=== PATIENT | female | born 1935 | race Caucasian/White ===

== ENCOUNTER → 2016-12-03 | Outpatient (CLI) | payer OTHER ==
[~2016-12-03] MED LIST: ASCO500T16 PO; ASPCH81 PO; CALCTAB7 PO; CLX20 PO; FLV400 PO; FURO20TA PO; GREE315C PO; LEVO50TA PO; MCRK20 PO; MULTTAB58 PO; OMEG10007 PO; POLY335025 PO; RANI300T PO; VITA100C2 PO
--- NOTE | 2016-12-03 13:31 | MAMMOGRAPHY REPORT ---
BILATERAL DIGITAL SCREENING MAMMOGRAM WITH CAD: 12/03/2016 CLINICAL HISTORY: Routine screening. Patient has no complaints. TECHNIQUE: Current study was also evaluated with a Computer Aided Detection (CAD) system. Bilatera l CC and MLO and left X CCL views were obtained. COMPARISON: Comparison is made to exams dated: 12/01/2015 mammogram, 12/11/2014 mammogram, 12/11/2014 s tereotactic biopsy, 12/06/2014 mammogram, 11/27/2014 mammogram, and 11/26/2013 mammogram - [facility]. BREAST COMPOSITION: There are scattered areas of fibroglandular density in both breasts. FINDINGS: No suspicious masses, calcifications, or areas of architectural distortion are noted in e ither breast. There has been no significant interval change compared to prior exams. A biopsy marke r clip is again noted in the left upper outer quadrant. Bilateral benign-appearing calcifications a re not significantly changed. Bilateral asymmetries are stable. IMPRESSION: ACR BI-RADS CATEGORY 2: BENIGN There is no mammographic evidence of malignancy. A 1 year screening mammogram is recommended. The p atient will receive written notification of the results. Approximately 10% of breast cancers are not detected with mammography. A negative mammographic repor t should not delay biopsy if a clinically suggestive mass is present. Lizzette Hook M.D. /:12/03/2016 09:31:21 Service Or Work Dispatcher: Yuridia Ferrell, [facility] letter sent: Normal 1/2 BI-RADS Code: ACR BI-RADS Category 2: Benign
== END | disposition home or self-care (01) ==
LOC: C.MAMM 08:45
PROVIDERS: ATTEND Family Medicine
DX: Z12.31 Encounter for screening mammogram for malignant neoplasm of breast (principal)

== ENCOUNTER → 2017-12-06 | Outpatient (CLI) | payer OTHER ==
--- NOTE | 2017-12-07 15:34 | MAMMOGRAPHY REPORT ---
BILATERAL DIGITAL SCREENING MAMMOGRAM TOMOSYNTHESIS WITH CAD: 12/06/2017 CLINICAL HISTORY: Routine screening. Patient has no complaints. TECHNIQUE: Breast tomosynthesis in addition to standard 2D mammography was performed. Current study was also evaluated with a Computer Aided Detection (CAD) system. COMPARISON: Comparison is made to exams dated: 12/03/2016 mammogram, 12/01/2015 mammogram, 12/11/2014 ma mmogram, 11/27/2014 mammogram, 11/26/2013 mammogram, and 11/23/2012 mammogram - [facility]. BREAST COMPOSITION: There are scattered areas of fibroglandular density in both breasts. FINDINGS: There is stable asymmetry in the lateral right breast and a stable metallic biopsy marker c lip in the upper outer left breast. Mild vascular calcification. No suspicious mass, architectural d istortion or cluster of microcalcifications is seen. IMPRESSION: ACR BI-RADS CATEGORY 1: NEGATIVE There is no mammographic evidence of malignancy. A 1 year screening mammogram is recommended. The pa tient will receive written notification of the results. Approximately 10% of breast cancers are not detected with mammography. A negative mammographic report should not delay biopsy if a clinically suggestive mass is present. Liudmila Kidd M.D. ay/:12/06/2017 16:41:55 Enterprise Integration Architect: Yuridia [facility])([facility]), [facility] letter sent: Normal 1/2 BI-RADS Code: ACR BI-RADS Category 1: Negative
== END | disposition home or self-care (01) ==
LOC: C.MAMM 08:35
PROVIDERS: ATTEND Family Medicine
DX: Z12.31 Encounter for screening mammogram for malignant neoplasm of breast (principal)

== ENCOUNTER 2021-12-11 00:48 | Inpatient (IN) ==
[2021-12-11] MEDS ORDERED: FAMOTIDINE 20MG IV PUSH 20 MG/5 ML SYR IV STA (01:02)
[2021-12-11] MEDS ORDERED: ONDANSETRON INJ 2 MG/ML 2 ML VIAL IV STA ×2 (01:02→03:42)
[2021-12-11] MEDS ORDERED: ACETAMINOPHEN 1,000 MG/100 ML VIAL IV STA (01:02)
[2021-12-11] MEDS: SODIUM CHLORIDE 0.9% 1000ML 1,000 ML IV SCH ×2 (01:10→06:23)
--- NOTE | 2021-12-11 01:20 | Emergency Department Note ---
History of Present Illness General Chief complaint: Vomiting Stated complaint: Vomiting Time Seen by Provider: 12/11/21 00:51 Source: patient Mode of arrival: EMS Limitations: no limitations History of Present Illness Provider complaint: vomiting, increased hernia Associated symptoms: + loss of appetite, + malaise and + nausea/vomiting; no chest pain, no fever/chills, no shortness of breath or no syncope Treatments prior to arrival: none This is an 86-year-old female presents emergency department complaining of nausea and vomiting. Patient states she does have history of frequent nausea, dry heaves, and vomiting ever since she had a repair of a hiatal hernia many years ago. Patient states she began feeling ill 2 evenings ago, however felt better yesterday during the day, then symptoms returned in the evening. Patient denies any recent change in medications or change in diet. She denies any known sick contact. She denies any recent change in bowel or bladder function. Patient denies any blood in her emesis although states it has been green. Pt seen during a time of high acuity and national emergency pandemic while wearing PPE. Home Medications Medication Instructions Recorded Confirmed Type calcium carbonate 600 mg-vitamin 1 tab PO QAM 07/23/20 12/11/21 History D3 5 mcg (200 unit) tablet cholecalciferol (vitamin D3) 25 25 mcg PO QAM 07/23/20 12/11/21 History mcg (1,000 unit) tablet (Vitamin D3) cranberry 500 mg capsule 500 mg PO QAM 07/23/20 12/11/21 History levothyroxine 50 mcg tablet 50 mcg PO QAM 07/23/20 12/11/21 History multivitamin 1 tab PO DAILY 07/23/20 12/11/21 History aspirin 81 mg tablet,delayed 81 mg PO QAM 12/11/21 12/11/21 History release omega-3 fatty acids 1,000 mg 1,000 mg PO DAILY 12/11/21 12/11/21 History capsule vitamin E 400 unit capsule 400 unit PO DAILY 12/11/21 12/11/21 History Allergies Allergy/AdvReac Type Severity Reaction Status Date / Time alendronate sodium Allergy Intermediate body aches Verified 12/11/21 01:19 pantoprazole AdvReac Intermediate Diarrhea. Verified 12/11/21 01:19 risedronate sodium AdvReac Intermediate STOMACH Verified 12/11/21 01:19 PROBLEMS Past Med/Surg History Medical History Hiatal hernia History of anxiety Hypothyroidism Osteoarthritis Ulcerative colitis Surgical History H/O bilateral salpingo-oophorectomy History of colonoscopy History of esophagogastroduodenoscopy (EGD) History of herniorrhaphy TOTAL 8 HERNIA REPAIRS History of left cataract surgery History of partial hysterectomy History of tonsillectomy History of tooth extraction History of total knee replacement RT Family History Father Family hx of colon cancer Sister Family hx of colon cancer Other No family history of adverse response to anesthesia Social History Smoking Status: Never smoker Second Hand Exposure: No; Do You Dip or Chew Tobacco: No; Hx Alcohol Use: No Hx Substance Use: No Preferred Language: Korean Communication Ability: Effective Tiger Machine Operator Required: No Beliefs That Will Affect Care: None Current Living Situation: Alone Other Information That Helps Us Care for You: No Feels Safe at Home: Yes Safety Concerns: Feels Safe At This Time Assistive Devices: Cane, Glasses and Walker Review of Systems A total of 10 systems reviewed and were otherwise negative All systems reviewed & are unremarkable except as noted in HPI & below Physical Exam Vital Signs Vital Signs - 24 hr 12/11/21 00:51 12/11/21 01:46 Temperature 36.9 C Temperature Source Oral Pulse Rate 103 H Pulse Rate [Apical] 86 Respiratory Rate 20 16 Respiratory Effort / Characteristics Non-Labored Spontaneous Non-Labored Spontaneous Respiratory Depth Normal Normal Blood Pressure 103/78 Blood Pressure [Right Arm] 145/86 H Blood Pressure Mean 86 Blood Pressure Mean [Right Arm] 105 Pulse Oximetry 99 94 Oxygen Delivery Method Room Air Room Air Sepsis Recent Fever Within 48 Hours No Sepsis New/Unexplained Change in Mental Status No Sepsis Action Taken by Nursing No Action Required GENERAL: alert, ill appearing, well nourished, mild distress, non-toxic, holding emesis bag with bilious emesis present EYE EXAM: normal conjunctiva, PERRL and EOM's grossly intact OROPHARYNX: no exudate, no erythema, lips, buccal mucosa, and tongue normal and mucous membranes are moist NECK: supple, no nuchal rigidity, no adenopathy, non-tender LUNGS: Clear to auscultation. Normal chest wall mechanics, no w/r/r HEART: no murmurs, S1 normal and S2 normal ABDOMEN: abdomen soft, non-tender, normo-active bowel sounds, no masses, no rebound or guarding. Pain with palpation over left inguinal mass which patient states is her hernia, she states typically can reduce this herself but it feels more painful this evening due to vomiting BACK: Back is symmetrical on inspection and there is no deformity, no midline tenderness, no CVA tenderness. SKIN: no rashes and no bruising UPPER EXTREMITIES: upper extremities are grossly normal. FROM, nml pulses b/l. LOWER EXTREMITIES: No pitting edema. FROM, nml pulses b/l. NEURO EXAM: Normal sensorium, cranial nerves II-XII grossly intact, normal speech, no gross weakness of arms, no gross weakness of legs. Gross sensation intact. Course Administered Medications Acetaminophen (Acetaminophen 500 Mg Tab) 1,000 mg PO Q6H PRN PRN Reason: Pain Stop: 01/10/22 14:11 Last Admin: 12/12/21 15:39 Dose: 1,000 mg Documented by: [id number] Admin: 12/12/21 09:04 Dose: 1,000 mg Documented by: [id number] Heparin Sodium (Porcine) (Heparin Sod 5,000 Unit/0.5 Ml Vial) 5,000 units SQ Q12 ANA Stop: 01/11/22 20:59 Last Admin: 12/12/21 20:22 Dose: 5,000 units Documented by: [id number] Lactated Ringer's (Lr) 1,000 mls @ 100 mls/hr IV .Q10H ANA Stop: 01/10/22 14:11 Last Admin: 12/12/21 13:41 Dose: 100 mls/hr Documented by: [id number] Infusion: 12/12/21 13:41 Dose: 100 mls/hr Documented by: [id number] Admin: 12/12/21 03:47 Dose: 100 mls/hr Documented by: [id number] Infusion: 12/12/21 03:47 Dose: 100 mls/hr Documented by: [id number] Admin: 12/11/21 17:50 Dose: 100 mls/hr Documented by: [id number] Discontinued Medications Bupivacaine HCl (Bupivacaine 0.5 % 5 Mg/1 Ml Mpf 30ml Vial) Confirm Administered Dose 30 ml .ROUTE .STK-MED ONE Stop: 12/11/21 12:12 Last Admin: 12/11/21 13:10 Dose: 11 ml Documented by: [id number] Droperidol (Droperidol 5 Mg/2 Ml Vial) 0.625 mg IV ONE STA Stop: 12/11/21 13:26 Last Admin: 12/11/21 13:32 Dose: 0.625 mg Documented by: [id number] Epinephrine HCl (Epinephrine Inj 1 Mg/Ml Amp) Confirm Administered Dose 1 mg .ROUTE .STK-MED ONE Stop: 12/11/21 12:13 Last Admin: 12/11/21 13:11 Dose: 0.15 mg Documented by: [id number] Sodium Chloride (Nss 1000ml) 1,000 mls @ 200 mls/hr IV .Q5H ANA Stop: 01/10/22 01:14 Last Infusion: 12/11/21 17:46 Dose: 0 mls/hr Documented by: [id number] Admin: 12/11/21 06:23 Dose: 200 mls/hr Documented by: [id number] Infusion: 12/11/21 06:20 Dose: 0 mls/hr Documented by: [id number] Admin: 12/11/21 01:10 Dose: 200 mls/hr Documented by: [id number] Acetaminophen (Ofirmev) 1,000 mg in 100 mls @ 400 mls/hr IV NOW STA Stop: 12/11/21 01:16 Last Infusion: 12/11/21 01:33 Dose: 0 mls/hr Documented by: [id number] Admin: 12/11/21 01:10 Dose: 400 mls/hr Documented by: [id number] Famotidine (Pepcid 20mg Iv Push) 20 mg in 5 mls @ 2.5 mls/min IV NOW STA Stop: 12/11/21 01:03 Last Admin: 12/11/21 01:09 Dose: 2.5 mls/min Documented by: [id number] Dextrose/Sodium Chloride (D5w And 1/2nss) 1,000 mls @ 125 mls/hr IV .Q8H ANA Stop: 01/10/22 08:10 Last Infusion: 12/11/21 17:45 Dose: 0 mls/hr Documented by: [id number] Admin: 12/11/21 09:21 Dose: 125 mls/hr Documented by: [id number] Cefazolin Sodium (Ancef 2000mg) 2,000 mg in 15 mls @ 3.75 mls/min IV PREOP ONE Stop: 12/11/21 11:09 Last Admin: 12/11/21 12:18 Dose: 3.75 mls/min Documented by: [id number] Ioversol (Optiray 320 100ml) 100 ml IV ONCE ONE Stop: 12/11/21 02:49 Last Admin: 12/11/21 02:49 Dose: 93 ml Documented by: [id number] Menthol (Cough Drop (Sugar Free) Jana 24 Jana/1 Box) Confirm Administered Dose 24 jana BUCCAL .STK-MED ONE Stop: 12/12/21 15:40 Last Admin: 12/12/21 15:39 Dose: 24 jana Documented by: [id number] Ondansetron HCl (Ondansetron Inj 2 Mg/Ml 2 Ml Vial) 4 mg IV NOW STA Stop: 12/11/21 01:03 Last Admin: 12/11/21 01:09 Dose: 4 mg Documented by: [id number] Ondansetron HCl (Ondansetron Inj 2 Mg/Ml 2 Ml Vial) 4 mg IV NOW STA Stop: 12/11/21 03:43 Last Admin: 12/11/21 04:24 Dose: 4 mg Documented by: [id number] Medical Decision Making Differential Diagnosis Differential: Gastroenteritis, Food Borne, Esophageal Perforation, , Electrolyte Abnormality, Dehydration, Intraabdominal Infection, UTI/Pyelonephri tis, Bowel Obstruction, Biliary Pathology, amongst other pathology entertained. Medical Records Attestation: I reviewed the patient's medical records. Home Medications Current Medication List: was personally reviewed by me Laboratory Data Attestation: I reviewed the patient's lab results. Result diagrams: 12/12/21 05:19 12/12/21 05:19 Lab Results 12/11/21 12/11/21 12/11/21 Range/Units 00:59 00:59 01:34 WBC 13.12 H (4.8-10.8) K/uL RBC 5.60 H (4.2-5.4) M/uL Hgb 15.8 (12.0-16.0) g/dL Hct 47.4 H (37-47) % MCV 84.6 (80-100) fL MCH 28.2 (25-34) pg MCHC 33.3 (32-36) g/dL RDW Std Deviation 43.1 (36.4-46.3) fL RDW Coeff of Aneglic 14.0 (11.5-14.5) % Plt Count 442 H (130-400) K/uL MPV 10.1 (7.4-10.4) fL Immature Gran % (Auto) 0.2 % Neut % (Auto) 78.5 % Lymph % (Auto) 15.3 % Stone % (Auto) 5.6 % Eos % (Auto) 0.2 % Baso % (Auto) 0.2 % Neut # (Auto) 10.29 H (1.4-6.5) K/uL Lymph # (Auto) 2.01 (1.2-3.4) K/uL Stone # (Auto) 0.74 H (0.11-0.59) K/uL Eos # (Auto) 0.02 (0-0.5) K/uL Baso # (Auto) 0.03 (0-0.2) K/uL Immature Gran # (Auto) 0.03 H (0.00-0.02) K/uL Sodium 134 L (136-145) mmol/L Potassium 4.3 (3.5-5.1) mmol/L Chloride 91 L (98-107) mmol/L Carbon Dioxide 25 (21-32) mmol/L Anion Gap 18 H (3-11) BUN 15 (6-23) mg/dl Creatinine 1.08 (0.6-1.2) mg/dl Est Cr Clr Drug Dosing 26.9 ml/min Est GFR ( Amer) 53.8 ml/min Est GFR (Non-Af Amer) 46.4 ml/min BUN/Creatinine Ratio 13.9 (10-20) Glucose 184 H (70-99(Fasting)) mg/dl Lactate 2.6 H* (0.4-2.0) mmol/L Calcium 10.3 H (8.5-10.1) mg/dl Magnesium 1.7 (1.7-2.4) mg/dl Total Bilirubin 1.1 H (0.2-1.0) mg/dl AST 21 (13-39) U/L ALT 16 (7-52) U/L Alkaline Phosphatase 85 (34-104) U/L Troponin I < 0.03 (0-0.04) ng/ml Total Protein 7.4 (6.0-8.3) gm/dl Albumin 4.7 (3.4-5.0) gm/dl Globulin 2.7 (2.5-4.0) gm/dl Albumin/Globulin Ratio 1.7 (0.9-2) Lipase 246 H (11-82) U/L SARS-CoV-2, RNA, NAAT (NEGATIVE) 12/11/21 12/11/21 Range/Units 03:29 05:40 WBC (4.8-10.8) K/uL RBC (4.2-5.4) M/uL Hgb (12.0-16.0) g/dL Hct (37-47) % MCV (80-100) fL MCH (25-34) pg MCHC (32-36) g/dL RDW Std Deviation (36.4-46.3) fL RDW Coeff of Angelic (11.5-14.5) % Plt Count (130-400) K/uL MPV (7.4-10.4) fL Immature Gran % (Auto) % Neut % (Auto) % Lymph % (Auto) % Stone % (Auto) % Eos % (Auto) % Baso % (Auto) % Neut # (Auto) (1.4-6.5) K/uL Lymph # (Auto) (1.2-3.4) K/uL Stone # (Auto) (0.11-0.59) K/uL Eos # (Auto) (0-0.5) K/uL Baso # (Auto) (0-0.2) K/uL Immature Gran # (Auto) (0.00-0.02) K/uL Sodium (136-145) mmol/L Potassium (3.5-5.1) mmol/L Chloride (98-107) mmol/L Carbon Dioxide (21-32) mmol/L Anion Gap (3-11) BUN (6-23) mg/dl Creatinine (0.6-1.2) mg/dl Est Cr Clr Drug Dosing ml/min Est GFR ( Amer) ml/min Est GFR (Non-Af Amer) ml/min BUN/Creatinine Ratio (10-20) Glucose (70-99(Fasting)) mg/dl Lactate 1.1 (0.4-2.0) mmol/L Calcium (8.5-10.1) mg/dl Magnesium (1.7-2.4) mg/dl Total Bilirubin (0.2-1.0) mg/dl AST (13-39) U/L ALT (7-52) U/L Alkaline Phosphatase (34-104) U/L Troponin I (0-0.04) ng/ml Total Protein (6.0-8.3) gm/dl Albumin (3.4-5.0) gm/dl Globulin (2.5-4.0) gm/dl Albumin/Globulin Ratio (0.9-2) Lipase (11-82) U/L SARS-CoV-2, RNA, NAAT NEGATIVE (NEGATIVE) Imaging Data Radiologist's Impression: CT abdomen and pelvis with contrast: High-grade small bowel obstruction with a transition point involving the bowel herniation at the left inguinal canal. No pneumatosis or pneumoperitoneum. Pneumobilia, similar company examination 09/22/2012. Cholecystectomy. Liver, pancreas, spleen, adrenal glands and kidneys demonstrate no significant abnormality or interval change. The bladder is predominantly decompressed. Significant degenerative changes of the thoracolumbar spine. No acute osseous abnormality. Radiologist: Pardeep Gee MD MDM Narrative This is an 86 yo female who presents c/o recurrent vomiting. Patient states her known left inguinal hernia is more painful since this began. Patient ill appearing but hemodynamically stable on presentation. Labs drawn and sent, pt started on IVF, nausea and pain medications. Patient with leukocytosis and elevated lactic acid. Patient sent for CT which revealed high grade bowel obstruction with left inguinal hernia site of likely transition point. VS stable throughout. Surgery contacted and PA came and evaluated pt at bedside. They requested hospitalist to admit. They plan to take the patient to the OR later today. Case discussed with hospitalist. An order was placed for continuous cardiac monitoring. The monitor shows a rate of __88_ with _normal sinus__ rhythm. Impression & Plan Nausea & vomiting, Small bowel obstruction, Inguinal hernia of left side with obstruction, Abdominal pain Discharge Plan Visit Data Chief Complaint: Vomiting Stated Complaint: Vomiting ED Provider: Lalita Escobar Discharge Problem: Nausea & vomiting, Small bowel obstruction, Inguinal hernia of left side with obstruction, Abdominal pain Patient Disposition: Admitted As Inpatient Discharge Instructions Interventions: ED Discharge Assessment Last Done: 12/11/21 07:40 Discharge Problem: Nausea & vomiting Qualifiers: Vomiting type: bilious vomiting Qualified Code(s): R11.14 - Bilious vomiting Abdominal pain Qualifiers: Abdominal location: left lower quadrant Qualified Code(s): R10.32 - Left lower quadrant pain
[2021-12-11 01:21] LABS: Basophils # (auto) 0.03 K/uL (0-0.2); Basophils % (auto) 0.2 %; Eosinophils # (auto) 0.02 K/uL (0-0.5); Eosinophils % (auto) 0.2 %; Hematocrit (blood only) 47.4 % (37-47); Hemoglobin 15.8 g/dL (12.0-16.0); Immature Granulocytes # (auto) 0.03 K/uL (0.00-0.02); Immature Granulocytes % (auto) 0.2 %; Lymphocytes # (auto) 2.01 K/uL (1.2-3.4); Lymphocytes % (auto) 15.3 %; Mean Corpuscular Hemoglobin 28.2 pg (25-34); Mean Corpuscular Hgb Conc 33.3 g/dL (32-36); Mean Corpuscular Volume 84.6 fL (80-100); Mean Platelet Volume 10.1 fL (7.4-10.4); Monocytes # (auto) 0.74 K/uL (0.11-0.59); Monocytes % (auto) 5.6 %; Neutrophils # (auto) 10.29 K/uL (1.4-6.5); Neutrophils % (auto) 78.5 %; Platelet Count 442 K/uL (130-400); RDW Standard Deviation 43.1 fL (36.4-46.3); White Blood Count 13.12 K/uL (4.8-10.8)
[2021-12-11 01:43] LABS: Troponin I < 0.03 ng/ml (0-0.04)
[2021-12-11 02:07] LABS: Alanine Aminotransferase 16 U/L (7-52); Albumin Globulin Ratio 1.7 (0.9-2); Albumin Level 4.7 gm/dl (3.4-5.0); Alkaline Phosphatase 85 U/L (34-104); Anion Gap 18 (3-11); Aspartate Aminotransferase 21 U/L (13-39); BUN Creatinine Ratio 13.9 (10-20); Bilirubin,Total 1.1 mg/dl (0.2-1.0); Blood Urea Nitrogen 15 mg/dl (6-23); Calcium 10.3 mg/dl (8.5-10.1); Carbon Dioxide 25 mmol/L (21-32); Chloride 91 mmol/L (98-107); Creatinine Clr Calc Pharmacy 26.9 ml/min; Est GFR (African American) 53.8 ml/min; Est GFR (Non-African American) 46.4 ml/min; Globulin 2.7 gm/dl (2.5-4.0); Glucose 184 mg/dl (70-99(Fasting)); Lipase 246 U/L (11-82); Magnesium 1.7 mg/dl (1.7-2.4); Potassium 4.3 mmol/L (3.5-5.1); Sodium 134 mmol/L (136-145); Total Protein 7.4 gm/dl (6.0-8.3)
[2021-12-11] MEDS ORDERED: OPTIRAY 320 100ml IV ONE (02:48)
--- NOTE | 2021-12-11 05:47 | Surgery Consultation ---
Date of Consultation December 11, 2021 Assessment & Plan (1) Small bowel obstruction: Patient small bowel obstruction is likely due to to incarcerated left inguinal hernia. We recommend proceeding as follows: We requested medicine admit the patient due to her advanced age Keep patient n.p.o. Ideally we will place an NG tube to low continuous suction. Multiple attempts were made by the nursing staff in the emergency department along with myself and were unsuccessful as placing the NG tube. Provide hydration with IV fluids Provide analgesics I scheduled the patient for surgery with Dr. Camacho later this morning for repair of patient's incarcerated left inguinal hernia. I have obtained informed consent from the patient's daughter who was present at bedside with the patient's permission. We have discussed the risks, benefits, and expected postoperative course. As NG tube is unable to be placed in the emergency department we may try to attempt to place this while patient is under anesthesia in the operating room It is nowhere the mention that the patient reports that she was told by her previous physicians she should not have laparoscopic surgery due to complications from abdominal insufflation noted in the past. We will make sure Dr. Camacho is aware of this. Additional recommendations be forthcoming based on operative findings and her postoperative course. as above. pt with no pain now only n/v. will require urgent intervention. will attempt laparoscopy with reduction/repair but may need to open if she doesn't tolerate insufflation. discussed risks ( bleeding/infection/injury to an organ/dvt/pe/mi/cva etc...). questions answered. will proceed now with dx laparoscopy, repair of incarcerated hernia, poss open. pt agrees to plan. History of Present Illness Reason for Consultation: Small bowel obstruction History of Present Illness This is an 86-year-old female who presented to [facility] secondary to nausea vomiting. Patient notes that she was in her usual state of health until yesterday when she developed some minor abdominal pain with associated nausea vomiting. Patient said that this persisted throughout the day prompting her visit to the emergency department. I asked patient about other symptoms and she denies any fevers, shakes, chills. She does report that she has a history of multiple hernia repairs including bilateral inguinal hernia repairs as well as a hiatal hernia repair. Patient notes that her hernias were repaired several years ago but since her symptoms began she has noted pain in the left groin. I question the patient about previous abdominal surgeries and as noted she has had bilateral inguinal hernia repairs as well as a hiatal hernia repair. The patient notes that her hiatal hernia was repaired laparoscopically. The patient notes that her inguinal hernias were attempted to be repaired laparoscopically however the patient said that there were it was a complication related to insufflation of her abdomen during the surgery and her inguinal hernias were converted to an open procedure. She did report that she was told she should not have laparoscopic surgery in the future. In addition the patient has had a cholecystectomy and a hysterectomy. In the emergency department she had labs and imaging which I independent reviewed. A CBC revealed white blood cell count was 13.1. Her hemoglobin was noted to be 15.8 with a hematocrit of 47.4. Platelet count was 442,000. A chemistry profile showed sodium was 134. Potassium was normal. Her BUN and creatinine were both noted to be normal. Her lactic acid level was not elevated. There is no significant elevation of her transaminases or alkaline phosphatase. There was a slight elevation of the total bilirubin at 1.1. She did have an elevation of her lipase at 246. A chest x-ray did not show any evidence of pneumonia or free air. An EKG showed normal sinus rhythm without any changes indicative of acute ischemia. CT scan of the abdomen and pelvis was performed that showed a high-grade small bowel obstruction with a transition point in the left inguinal canal which appeared to involve a bowel herniation. There is no pneumatosis or pneumoperitoneum. At the time of my interview the patient was in no distress but did have persistent nausea and vomiting. Allergies Allergy/AdvReac Type Severity Reaction Status Date / Time alendronate sodium Allergy Intermediate body aches Verified 12/11/21 01:19 pantoprazole AdvReac Intermediate Diarrhea. Verified 12/11/21 01:19 risedronate sodium AdvReac Intermediate STOMACH Verified 12/11/21 01:19 PROBLEMS Home Medications Medication Instructions Recorded Confirmed Type calcium carbonate 600 mg-vitamin 1 tab PO QAM 07/23/20 12/11/21 History D3 5 mcg (200 unit) tablet cholecalciferol (vitamin D3) 25 25 mcg PO QAM 07/23/20 12/11/21 History mcg (1,000 unit) tablet (Vitamin D3) cranberry 500 mg capsule 500 mg PO QAM 07/23/20 12/11/21 History levothyroxine 50 mcg tablet 50 mcg PO QAM 07/23/20 12/11/21 History multivitamin 1 tab PO DAILY 07/23/20 12/11/21 History aspirin 81 mg tablet,delayed 81 mg PO QAM 12/11/21 12/11/21 History release omega-3 fatty acids 1,000 mg 1,000 mg PO DAILY 12/11/21 12/11/21 History capsule vitamin E 400 unit capsule 400 unit PO DAILY 12/11/21 12/11/21 History Patient History Medical History Hiatal hernia History of anxiety Hypothyroidism Osteoarthritis Ulcerative colitis Surgical History H/O bilateral salpingo-oophorectomy History of colonoscopy History of esophagogastroduodenoscopy (EGD) History of herniorrhaphy TOTAL 8 HERNIA REPAIRS History of left cataract surgery History of partial hysterectomy History of tonsillectomy History of tooth extraction History of total knee replacement RT Family History Father Family hx of colon cancer Sister Family hx of colon cancer Other No family history of adverse response to anesthesia Social History Smoking Status: Never smoker Second Hand Exposure: No; Do You Dip or Chew Tobacco: No; Hx Alcohol Use: No Hx Substance Use: No Preferred Language: Northern Irish Communication Ability: [employer] Required: No Beliefs That Will Affect Care: None Current Living Situation: Alone Other Information That Helps Us Care for You: No Feels Safe at Home: Yes Safety Concerns: Feels Safe At This Time Assistive Devices: Cane, Denture - Upper, Denture - Lower, Glasses and Walker Review of Systems Constitutional: no fever and no chills Eyes: no diplopia Ear, Nose, Mouth, Throat: no ear pain Respiratory: no cough and no dyspnea Cardiovascular: no chest pain and no dyspnea on exertion Gastrointestinal: + abdominal pain (Most prominent in the left groin), + nausea and + vomiting Genitourinary: no dysuria Musculoskeletal: no back pain Integumentary: no rash Neurologic: no localized weakness Physical Exam Constitutional: well developed and well nourished; no acute distress Eyes: no conjunctival abnormality ENMT: Ears: no hearing impairment and no external ear abnormality Mouth: no oropharynx abnormality Neck: trachea midline Respiratory: normal respiratory effort, lungs clear to auscultation Cardiovascular: Rate/Rhythm: regular rate and regular rhythm Gastrointestinal (Abdomen): Patient's abdomen is soft and nondistended. There is no rebound tenderness or guarding. The patient did have pain with palpation over the left groin. I did appreciate a small mass in the left groin which was nonreducible. This area was tender to palpation. There is no erythema or discoloration of the overlying skin. Musculoskeletal: No calf tenderness Skin: no rashes Neurologic: moves all extremities Psychiatric: A+Ox3, euthymic affect Results & Data ([facility]) Vital Signs (Past 12 Hours) Vital Signs Temp Pulse Pulse Resp BP BP Pulse Ox 12/11/21 01:46 86 16 145/86 H 94 12/11/21 00:51 36.9 C 103 H 20 103/78 99 PG Care Time/CCT Total # of Minutes Spent Total Time Spent with Patient: Total time spent is greater than 50% in coordination of care (as documented) at patient's floor/unit and/or counseling patient: Coding Level of Care Code 72164 Inpt Consult Level 5 Diagnoses Small bowel obstruction K56.609
--- NOTE | 2021-12-11 07:18 | XRay Report ---
XR chest 1V portable CLINICAL HISTORY: vomiting TECHNIQUE: Single frontal radiograph of the chest was obtained. Comparison: None available at the time of this dictation. FINDINGS: No lines and tubes are seen. The cardiomediastinal silhouette is normal. The lungs are clear. No evid ence of pleural effusion or pneumothorax. Degenerative changes are seen in the bilateral shoulder ny nts. IMPRESSION: No acute chest disease. ACT 112: Negative or not required by law. Electronically signed by: Zander Stallworth M.D. 12/11/2021 7:16 AM
--- NOTE | 2021-12-11 07:21 | History and Physical Report ---
DATE OF ADMISSION: 12/11/2021. CHIEF COMPLAINT: Nausea, vomiting, high-grade small-bowel obstruction. HISTORY OF PRESENT ILLNESS: An 86-year-old female with past medical history significant for hyperlipidemia, history of pancreatic cyst, history of hypothyroidism, history of ulcerative colitis, currently not on any medications; history of paraesophageal hernia, status post repair; general osteoarthrosis, presents with nausea, vomiting and found to have high-grade small-bowel obstruction. The patient lives alone, ambulates with cane and walker. Since yesterday 11 a.m., she was having lot of nausea and vomiting. When the daughter went home to check her, she was also having some shaking and with this persistent nausea, vomiting she was brought into the hospital and the imaging studies showing high-grade small-bowel obstruction.Seen by Surgery in the ER, planned for OR soon. NG tube placement was attempted, but could not be placed. Currently, the patient is resting comfortably, hemodynamically stable, has some greenish liquidy vomitus in the bag seen. Has some headache. Denies blurred visions, no earache, no runny nose, has sore throat from vomiting. Prior to this episode, she was eating and drinking okay. She denies any chest pain, no shortness of breath, no cough. Has some abdominal soreness from vomiting, had normal bowel movement yesterday morning. Normal bladder movements. ALLERGIES: ALENDRONATE, PROTONIX, RISEDRONATE. PAST MEDICAL HISTORY: As mentioned above. PAST SURGICAL HISTORY: Abdominal wall hernia repair, laparoscopy converted to open, right and left inguinal hernia surgeries with mesh in 12/2013, carpal tunnel surgery, colonoscopy with biopsies, EGD with endoscopic ultrasound, laparoscopic cholecystectomy, paraesophageal hernia repair laparoscopic with mesh placement in November 2012, repair of recurrent inguinal hernia, total abdominal hysterectomy with removal of tubes in 1984, umbilical hernia repair in 1997. MEDICATIONS: The patient is on aspirin 81 mg p.o. daily, calcium plus vitamin D one tablet p.o. a.m., vitamin D 25 mcg p.o. a.m., levothyroxine 50 mg p.o. a.m., multivitamins 1 tablet p.o. daily, omega fish oil 1 gram p.o. daily, vitamin E 400 units p.o. daily. FAMILY HISTORY: Significant for father had lung and colon cancer. Sister had colon cancer. Paternal grandfather had heart problems. SOCIAL HISTORY: Currently lives alone. No smoking, no alcohol, no drug use. REVIEW OF SYSTEMS: As per HPI. Rest of review of systems is negative. PHYSICAL EXAMINATION: GENERAL: The patient is of moderate build, not in acute distress. VITAL SIGNS: Temperature 36.9, pulse 86, respiratory rate 16, blood pressure 145/86, oxygen 94% on room air. HEENT: Pupils equal, round and reactive to light. Oral mucosa moist. NECK: No JVD. No neck masses. CARDIOVASCULAR: S1 and S2 heard. Regular rate and rhythm. No murmur, no gallop. RESPIRATORY SYSTEM: Normal AP diameter. No accessory muscle use. No wheezing, no crackles. ABDOMEN: Soft, no abdominal sounds heard. No guarding. No rigidity. CENTRAL NERVOUS SYSTEM: Cranial nerves II-XII grossly intact, nonfocal. EXTREMITIES: Lower extremity edema present, no erythema seen. LABORATORY DATA: WBC 13.1, hemoglobin 15.8, hematocrit 47.4, platelets 442. Sodium 134, potassium 4.3, chloride 91, CO2 25, BUN 15, creatinine 1.08, serum glucose 184, lactate 1.1, calcium 10.3, magnesium 1.7, total bilirubin 1.1, AST 21, ALT 16, alkaline phosphatase 85. Troponin I less than 0.03. Lipase 246. SARS-CoV-2 RNA rapid test negative. IMAGING DATA: Chest x-ray, no acute findings. EKG: Normal sinus rhythm at a rate of 87, left axis deviation, no significant change was found. IMAGING DATA: CT abdomen and pelvis with contrast on the preliminary report shows high-grade small-bowel obstruction with a transition point involving the bowel herniation at the left inguinal canal. No pneumatosis or pneumoperitoneum. Pneumobilia similar from the examination of 09/14/2012, cholecystectomy. ASSESSMENT AND PLAN: This is an 86-year-old female who presents with persistent nausea, vomiting since yesterday 11 a.m. and found to have high-grade small- bowel obstruction. 1. High-grade small-bowel obstruction, transition point involving the bowel herniation. The patient has multiple hernia surgeries. Seen by surgery in the ER. Planned for taking to OR, failed NG tube attempts twice in the ER. Currently, resting comfortably. Continue with n.p.o., IV fluids, IV antiemetics and IV pain medicines p.r.n. NG tube placement as per surgery. Closely monitor in medical floor. 2. Hypothyroidism. We will hold Synthroid for now, to restart soon when able to. 3. History of ulcerative colitis. Currently, the patient is not on any medications. The patient states when she was anxious, she used to have diarrhea in the past, but currently stable. 4. Deep venous thrombosis prophylaxis: SCDs for now. DISPOSITION: Closely monitor in the medical floor. PT, OT prior to discharge. Social service to help with discharge planning. Job ID: [id number] [facility]
[2021-12-11] MEDS ORDERED: D5W AND 1/2NSS 1,000 ML IV SCH (08:11)
[2021-12-11] MEDS ORDERED: HYDROmorphone INJ 0.5 MG/0.5 ML SYR IV PRN (08:11)
[2021-12-11] MEDS ORDERED: ONDANSETRON INJ 2 MG/ML 2 ML VIAL IV PRN ×2 (08:11→11:40)
--- NOTE | 2021-12-11 08:27 | CT Scan Report ---
ABDOMEN AND PELVIS CT WITH IV CONTRAST CT DOSE: 243.87 mGy.cm HISTORY: Acute nausea and vomiting with generalized abdominal pain abd pain, vomiting TECHNIQUE: Multiaxial CT images of the abdomen and pelvis were performed following the IV administrat ion of 93 cc of Optiray, A dose lowering technique was utilized adhering to the principles of ALARA. COMPARISON STUDY: CT abdomen and pelvis 09/14/2012 FINDINGS: The imaged inferior cardiac chambers are unremarkable. 6 mm benign solid nodule of the lingula is unc hanged from 2012. 6 mm solid nodule the basal left lower lobe on image 27 is new from prior. Unchange d 5 mm subpleural solid nodule of the basal right lower lobe on image 50. No pneumatosis or pneumoper itoneum. Calcified granulomata of the spleen. Mild generalized pancreatic atrophy. Unremarkable adrenal glands . Cholecystectomy with pneumobilia, intrahepatic and extrahepatic biliary ductal dilation which is li aisha postsurgical. Patent portal vein. No hepatic mass identified. Unremarkable kidneys without hydro nephrosis. Urinary bladder is decompressed with wall thickening. Uterus is either atrophic or surgica lly absent. Atherosclerosis of the abdominal aorta without aneurysm. No adenopathy. Distended air and fluid-filled stomach. High-grade small bowel obstruction secondary to obstructive l oop of small bowel which extends into the small left inguinal hernia, image 346 of series 3. Upstream small bowel dilation measuring up to 3.6 cm. Decompressed loops of small bowel distal to the site of obstruction. A small fat and fluid filled right inguinal hernia is also present. Colonic diverticulo sis. Subcentimeter perirectal lymph nodes. Mild wall thickening is noted within the transverse colon on image 224, likely secondary to partial distention. The appendix is noninflamed. Mild generalized b moose wall edema. Degenerative changes of the spine, pelvis and hips. Severe left hip osteoarthritis. IMPRESSION: 1. There is a small left inguinal hernia which contains a single loop of small bowel resulting in a h igh-grade small bowel obstruction. No pneumatosis or pneumoperitoneum. 2. Cholecystectomy with pneumobilia. 3. Colonic diverticulosis. 4. Additional findings as above. ACT 112: Negative or not required by law. The above report was generated using voice recognition software. It may contain grammatical, syntax o r spelling errors. Electronically signed by: Van Moctezuma M.D. 12/11/2021 8:25 AM
[2021-12-11] MEDS ORDERED: ceFAZolin 2000MG 2,000 MG/15 ML SYR IV ONE (11:06)
[2021-12-11] MEDS ORDERED: fentaNYL citrate 100 MCG/2 ML VIAL ONE (11:13)
[2021-12-11] MEDS ORDERED: ATROPINE SULFATE 0.1 MG/ML 10ML SYR IV PRN (11:40)
[2021-12-11] MEDS ORDERED: LABETALOL HCL IV 5 MG/ML 20ML IV PRN (11:40)
[2021-12-11] MEDS ORDERED: MEPERIDINE HCL 25 MG/ML CARP/VIAL IV PRN (11:40)
[2021-12-11] MEDS ORDERED: PHENYLEPHRINE 100MCG/ML 5ML SYR IV PRN (11:40)
[2021-12-11] MEDS ORDERED: HYDROmorphone INJ 1 MG/ML SYRINGE IV PRN (11:40)
[2021-12-11] MEDS ORDERED: ePHEDrine sulfate 50 MG/ML AMP IV PRN (11:40)
[2021-12-11] MEDS ORDERED: fentaNYL citrate 100 MCG/2 ML VIAL IV PRN (11:40)
--- NOTE | 2021-12-11 11:43 | Anesthesiology Consultation ---
Date of Service December 11, 2021 Assessment & Plan (1) Encounter for pre-operative examination: Chart Review Chart Review: Acceptable Risk for Surgery and Patient NOT seen in Pre Admission Testing Consults Requested none History Surgery Operation Date: 12/11/21 07:00 Proposed Procedures p Laparoscopic, Possible Open, Left Inguinal Hernia Repair, Possible Exploratory Laparotomy - Pardeep Camacho, DO Height/Weight Height: 5 ft Weight: 54.5 kg Allergies Allergy/AdvReac Type Severity Reaction Status Date / Time alendronate sodium Allergy Intermediate body aches Verified 12/11/21 01:19 pantoprazole AdvReac Intermediate Diarrhea. Verified 12/11/21 01:19 risedronate sodium AdvReac Intermediate STOMACH Verified 12/11/21 01:19 PROBLEMS Medications Home Medications Medication Instructions Recorded Confirmed Last Taken calcium carbonate 600 mg-vitamin 1 tab PO QAM 07/23/20 12/11/21 09/02/20 D3 5 mcg (200 unit) tablet cholecalciferol (vitamin D3) 25 25 mcg PO QAM 07/23/20 12/11/21 09/02/20 mcg (1,000 unit) tablet (Vitamin D3) cranberry 500 mg capsule 500 mg PO QAM 07/23/20 12/11/21 09/02/20 levothyroxine 50 mcg tablet 50 mcg PO QAM 07/23/20 12/11/21 12/10/21 multivitamin 1 tab PO DAILY 07/23/20 12/11/21 09/02/20 aspirin 81 mg tablet,delayed 81 mg PO QAM 12/11/21 12/11/21 Unknown release omega-3 fatty acids 1,000 mg 1,000 mg PO DAILY 12/11/21 12/11/21 Unknown capsule vitamin E 400 unit capsule 400 unit PO DAILY 12/11/21 12/11/21 12/10/21 Active Medications Generic Name Dose Route Start Last Admin Trade Name Freq PRN Reason Stop Dose Admin Dextrose/Sodium Chloride 1,000 mls @ 125 mls/hr 12/11/21 08:11 12/11/21 09:21 D5w And 1/2nss IV 01/10/22 08:10 125 mls/hr .Q8H ANA Administration NPO Date Last Intake of Fluids: 12/10/21 Time Last Intake of Fluids: 11:00 Date Last Intake of Solids: 12/10/21 Time Last Intake of Solids: 11:00 Past Medical History Medical History Hiatal hernia History of anxiety Hypothyroidism Osteoarthritis Ulcerative colitis Past Family History Family History Father Family hx of colon cancer Sister Family hx of colon cancer Other No family history of adverse response to anesthesia Past Surgical History Surgical History H/O bilateral salpingo-oophorectomy History of colonoscopy History of esophagogastroduodenoscopy (EGD) History of herniorrhaphy TOTAL 8 HERNIA REPAIRS History of left cataract surgery History of partial hysterectomy History of tonsillectomy History of tooth extraction History of total knee replacement RT Social History Smoking Status: Never smoker Do You Dip or Chew Tobacco: No Hx Alcohol Use: No Hx Substance Use: No substance use type: does not use Physical Exam Vital Signs Last Vital Signs Temp 36.7 C 12/11/21 08:27 Pulse 83 12/11/21 10:19 Resp 18 12/11/21 10:19 BP 166/71 H 12/11/21 10:19 Pulse Ox 97 12/11/21 10:19 Testing Laboratory Results 12/11/21 00:59 12/11/21 00:59 Electrocardiogram Date: 12/11/21 Findings: + NSR @ (87) left axis deviation, possible lateral infarct Chest X-Ray Date: 12/11/21 XR chest 1V portable CLINICAL HISTORY: vomiting TECHNIQUE: Single frontal radiograph of the chest was obtained. Comparison: None available at the time of this dictation. FINDINGS: No lines and tubes are seen. The cardiomediastinal silhouette is normal. The lungs are clear. No evidence of pleural effusion or pneumothorax. Degenerative changes are seen in the bilateral shoulder joints. IMPRESSION: No acute chest disease. ACT 112: Negative or not required by law. Electronically signed by: Zander Stallworth M.D.
[2021-12-11] MEDS ORDERED: BUPIVACAINE 0.5 % 5 MG/1 ML MPF 30ML VIAL ONE (12:11)
[2021-12-11] MEDS ORDERED: EPINEPHrine INJ 1 MG/ML AMP ONE (12:12)
[2021-12-11] MEDS ORDERED: ROCURONIUM BROMIDE 10 MG/ML 5 ML VIAL IV ONE (12:53)
[2021-12-11] MEDS ORDERED: ONDANSETRON INJ 2 MG/ML 2 ML VIAL ONE (12:53)
[2021-12-11] MEDS ORDERED: LIDOCAINE 2% 2 ML VIAL/AMP(20MG/ML) INFIL ONE (12:53)
[2021-12-11] MEDS ORDERED: DEXAMETHASONE SOD INJ 4 MG/ML VIAL ONE (12:53)
[2021-12-11] MEDS ORDERED: PROPOFOL IV EMULSION 10 MG/ML 20 ML VIAL IV ONE (12:53)
[2021-12-11] MEDS ORDERED: SUCCINYLCHOLINE CHLORIDE 20 MG/ML 10 ML VIAL IV ONE (12:53)
--- NOTE | 2021-12-11 13:17 | Operative Report ---
PG Post Operative Report Pre & Post Diagnosis Operation Date: 12/11/21 07:00 Pre-Op Diagnosis: High-grade small-bowel obstruction, transition point involving the bowel herniation Post-Op Diagnosis: High-grade small-bowel obstruction, transition point involving the bowel her niation I identified the patient and participated in the time-out.: Yes Procedure Operation Date: 12/11/21 07:00 Actual Procedures p Laparoscopic release of small bowel and Left Inguinal Hernia Repair with mesh(Left) - Pardeep Camacho DO Surgeon Pardeep Camacho DO Horizontal Drill Operator tabby Disla Estimated Blood Loss 5 Findings Consistent with Post-Op Diagnosis Specimens none Description of Procedure After informed consent was obtained the patient was taken to the operating room and placed in supine position. After successful intubation an orogastric tube as well as a Penn catheter were placed sterilely. The abdomen was sterilely prepped and draped in usual fashion. I began with a periumbilical incision with an 11 blade scalpel and carried this down through the soft tissues and cautery. Anterior rectus fascia was opened using cautery and two #0 Vicryl stay sutures were placed. Peritoneum was entered using blunt finger penetration and a finger sweep was performed. A 12 mm Lester trocar was placed and the abdomen was insufflated to 16 mmHg. Laparoscope was inserted and the abdomen examined 360 degrees. There was an incarcerated left inguinal hernia. There was a very small nonincarcerated right inguinal hernia. A right lower quadrant 5 mm trocar and a right mid abdominal 5 mm trocar were placed under direct vision. The patient was placed in Trendelenburg position. Once paralyzed we are able to manually reduce the small bowel. There was no evidence of any infarction or ischemia. By reducing the small bowel we released the small bowel obstruction. This left a small left inguinal hernia. A 10 cm circular mesh with an antia dhesive barrier was rolled and placed in the abdominal cavity and unrolled. It was placed such that the antiadhesive barrier was facing the bowel. It was placed such that it covered the defect for several centimeters in all directions. A protack device was used to secure it. We were able to palpate before firing above the iliopubic tract. 1 tack was placed into the pubic bone itself. Look around the abdomen showed no other abnormalities. Anesthesia attempted to exchange the orogastric tube for nasogastric tube without success. At this point we removed all the trochars and desufflated the abdomen. The fascia of the camera port was closed using 0 Vicryl in a [id number] fashion. The wounds were irrigated and closed using 4-0 Monocryl. Marcaine with epinephrine were injected around them for postoperative analgesia and skin glue used as a dressing. The patient was awakened extubated and transferred to recovery in stable condition. My physician assistant community manager was present and assisted with prepping the patient running the camera for my dissection wound closure and dressing placement. I attest to the content of the Intraoperative Record and any orders documented therein. Any exceptions are noted below.
[2021-12-11] MEDS ORDERED: DROPERIDOL 5 MG/2 ML VIAL IV STA (13:25)
--- NOTE | 2021-12-11 13:51 | Anesthesiology Progress Note ---
Date of Service December 11, 2021 Anesthesia Post Procedure Vital Signs Vital Signs: Temp Pulse Pulse Pulse Resp BP BP 12/11/21 13:45 82 17 122/74 12/11/21 13:35 81 17 122/68 12/11/21 13:25 83 17 140/70 12/11/21 13:17 37.6 C H 82 18 129/73 12/11/21 10:19 83 18 166/71 H 12/11/21 08:27 36.7 C 80 16 143/76 H 12/11/21 06:30 79 21 146/76 H 12/11/21 02:50 80 24 144/72 H 12/11/21 01:46 86 16 145/86 H 12/11/21 00:51 36.9 C 103 H 20 103/78 Pulse Ox 12/11/21 13:45 98 12/11/21 13:35 100 12/11/21 13:25 100 12/11/21 13:17 100 12/11/21 10:19 97 12/11/21 08:27 96 12/11/21 06:30 95 12/11/21 02:50 98 12/11/21 01:46 94 12/11/21 00:51 99 Transfer of Care Handoff Completed per policy Notes Mental Status: alert / awake / arousable Patient Amnestic to Procedure: Yes Nausea / Vomiting: adequately controlled Pain: adequately controlled Airway Patency, RR, SpO2: stable & adequate BP & HR: stable & adequate Hydration State: stable & adequate Anesthetic Complications: no major complications apparent and Pt Satisfied with anesthetic care Notes: The patient is awake and comfortable.
[2021-12-11] MEDS: LACTATED RINGER'S 1,000 ML IV SCH (17:50)
--- NOTE | 2021-12-11 18:48 | Communication Note ---
Date of Service: December 11, 2021 Patient was seen and examined at bedside. Chart reviewed. Labs and vitals reviewed. Patient is an 86 year old female with recurrent left inguinal hernia w ho presented to the ED earlier today with high grade small bowel obstruction due to left inguinal hernia. Multiple attempts to place NG tube failed. Seen by surgery and underwent laparoscopic release of small bowel obstruction and repair of recurrent left inguinal hernia with mesh. Diet and chemoprophylaxis per primary team. Patient is afebrile and hemodynamically stable.
--- NOTE | 2021-12-11 22:08 | Electrocardiogram Report ---
Test Reason : Blood Pressure : / mmHG Vent. Rate : 087 BPM Atrial Rate : 087 BPM P-R Int : 144 ms QRS Dur : 080 ms QT Int : 396 ms P-R-T Axes : 060 -32 036 degrees QTc Int : 476 ms Poor data quality, interpretation may be adversely affected Normal sinus rhythm Left axis deviation Possible Anterolateral infarct , age undetermined Abnormal ECG When compared with ECG of 23-NOV-2012 17:28, Possible Anterolateral infarct is now Present Confirmed by Tato Gandhi ([id number]) on 12/11/2021 10:08:06 PM Referred By: REFERRED SELF Confirmed By:Tato Gandhi
[2021-12-12] MEDS: LACTATED RINGER'S 1,000 ML IV SCH ×3 (03:47→23:46)
[2021-12-12 05:56] LABS: BUN Creatinine Ratio 17.4 (10-20); Est GFR (African American) 91.4 ml/min; Est GFR (Non-African American) 78.8 ml/min; Magnesium 1.8 mg/dl (1.7-2.4); Potassium 3.7 mmol/L (3.5-5.1)
[2021-12-12 06:06] LABS: Basophils # (auto) 0.02 K/uL (0-0.2); Basophils % (auto) 0.2 %; Eosinophils # (auto) 0.06 K/uL (0-0.5); Eosinophils % (auto) 0.6 %; Hematocrit (blood only) 34.5 % (37-47); Immature Granulocytes # (auto) 0.02 K/uL (0.00-0.02); Immature Granulocytes % (auto) 0.2 %; Lymphocytes # (auto) 1.93 K/uL (1.2-3.4); Lymphocytes % (auto) 18.8 %; Mean Corpuscular Hemoglobin 27.4 pg (25-34); Mean Corpuscular Hgb Conc 31.9 g/dL (32-36); Mean Platelet Volume 9.3 fL (7.4-10.4); Monocytes # (auto) 1.09 K/uL (0.11-0.59); Monocytes % (auto) 10.6 %; Neutrophils # (auto) 7.17 K/uL (1.4-6.5); Neutrophils % (auto) 69.6 %; Platelet Count 316 K/uL (130-400); RDW Coefficient of Variation 14.4 % (11.5-14.5); RDW Standard Deviation 45.1 fL (36.4-46.3); Red Blood Count 4.01 M/uL (4.2-5.4); White Blood Count 10.29 K/uL (4.8-10.8)
[2021-12-12] MEDS: ACETAMINOPHEN 500 MG TAB PO PRN ×2 (09:04→15:39)
--- NOTE | 2021-12-12 15:15 | Hospitalist Progress Note ---
Date of Service December 12, 2021 Assessment & Plan (1) Small bowel obstruction: (2) Inguinal hernia of left side with obstruction: Plan: 86 year old female with recurrent left inguinal hernia presented 12/11 with small bowel obstruction and is s/p surgery 12/11 High grade Small bowel obstruction due to left inguinal hernia- s/p laparoscopic release of SBO and repair of left inguinal hernia with mesh by surgery 12/11. Diet, pain management and activities per surgical team Acquired hypothyroidism- continue synthroiod DVT prophylaxis- sc heparin Dispo- Likely can be discharged tomorrow if cleared by surgery and PT Updated son at bedside Admission and Anticipated Discharge Date Admission Date: December 11, 2021 Subjective Feeling much better today. Pain is controlled. Tolerating clears well. Hoping to advance diet today. Passed gas. No nausea or vomiting. She is looking forward to going home tomorrow. Physical Exam Physical Exam: General: Lying comfortably in bed, not in distress, on room air HEENT: EOMI, GEETHA, MMM Chest: Clear breath sounds bilaterally, no wheezes or crackles CVS: Regular rate and rhythm, normal heart sounds, no murmur Abdomen: Soft, non tender, not distended, normal bowel sounds. Incisions clean dry intact Neuro: Awake, alert, oriented, conversing well, non focal Extremities: No cyanosis, clubbing Results & Data Results & Data ([facility]) Vital Signs (Past 12 Hours) Vital Signs Temp Pulse Resp BP Pulse Ox 12/12/21 14:41 36.7 C 80 16 113/67 95 12/12/21 07:56 36.7 C 60 16 97/59 L 95 12/12/21 03:38 36.6 C 65 16 91/47 L 97 Laboratory Results Short CBC 12/12/21 Range/Units 05:19 WBC 10.29 (4.8-10.8) K/uL Hgb 11.0 L D (12.0-16.0) g/dL Hct 34.5 L (37-47) % Plt Count 316 (130-400) K/uL BMP 12/12/21 05:19 Sodium 140 Potassium 3.7 Chloride 106 Carbon Dioxide 28 BUN 12 Creatinine 0.69 D Glucose 94 Calcium 8.0 L D Medications Administered Current Inpatient Medications Acetaminophen (Acetaminophen 500 Mg Tab) 1,000 mg PO Q6H PRN PRN Reason: Pain Stop: 01/10/22 14:11 Last Admin: 12/12/21 09:04 Dose: 1,000 mg Documented by: Hydromorphone HCl (Hydromorphone Inj 0.5 Mg/0.5 Ml Syr) 0.5 mg IV Q4H PRN PRN Reason: Pain Stop: 12/25/21 08:10 Lactated Ringer's (Lr) 1,000 mls @ 100 mls/hr IV .Q10H ANA Stop: 01/10/22 14:11 Last Admin: 12/12/21 13:41 Dose: 100 mls/hr Documented by: Ondansetron HCl (Ondansetron Inj 2 Mg/Ml 2 Ml Vial) 4 mg IV Q6H PRN PRN Reason: Nausea Stop: 01/10/22 08:10
--- NOTE | 2021-12-12 15:16 | Surgery Progress Note ---
Date of Service December 12, 2021 Assessment & Plan (1) Inguinal hernia of left side with obstruction: Plan: s/p lap left inguinal hernia repair for incarceration. Doing well. Will add ice pack to left groin. OK to advance diet. Likely home tomorrow. Plan: s/p left Admission and Anticipated Discharge Date Admission Date: December 11, 2021 Subjective Feels well. Tolerating clears. Passing flatus and bowels are working. Minimal pain but is sore in left groin. Physical Exam Respiratory: normal respiratory effort, lungs clear to auscultation Cardiovascular: Rate/Rhythm: regular rate and regular rhythm Gastrointestinal (Abdomen): Inspection/Auscultation: abdomen normal to inspection and normal bowel sounds; abdomen not distended Percussion/Palpation: + abdomen tender (in left groin) incisions healing well Neurologic: awake; no focal motor deficits Results & Data ([facility]) Vital Signs (Past 12 Hours) Vital Signs Temp Pulse Resp BP Pulse Ox 12/12/21 14:41 36.7 C 80 16 113/67 95 12/12/21 07:56 36.7 C 60 16 97/59 L 95 12/12/21 03:38 36.6 C 65 16 91/47 L 97 Laboratory Results Abnormal lab results 12/12/21 12/12/21 Range/Units 05:19 05:19 RBC 4.01 L (4.2-5.4) M/uL Hgb 11.0 L D (12.0-16.0) g/dL Hct 34.5 L (37-47) % MCHC 31.9 L (32-36) g/dL Neut # (Auto) 7.17 H (1.4-6.5) K/uL [place] # (Auto) 1.09 H (0.11-0.59) K/uL Calcium 8.0 L D (8.5-10.1) mg/dl
[2021-12-12] MEDS ORDERED: COUGH DROP (SUGAR FREE) LOZ 24 LOZ/1 BOX BUCCAL PRN (15:38)
[2021-12-12] MEDS ORDERED: COUGH DROP (SUGAR FREE) LOZ 24 LOZ/1 BOX BUCCAL ONE (15:39)
[2021-12-12] MEDS: HEPARIN SOD 5,000 UNIT/0.5 ML VIAL SQ SCH (20:22)
[2021-12-13] MEDS: ACETAMINOPHEN 500 MG TAB PO PRN (06:18)
[2021-12-13] MEDS ORDERED: LEVOTHYROXINE SODIUM 50 MCG TABLET PO SCH (06:30)
[2021-12-13 06:36] LABS: Hematocrit (blood only) 38.6 % (37-47); Hemoglobin 12.2 g/dL (12.0-16.0)
[2021-12-13 07:01] LABS: BUN Creatinine Ratio 17.5 (10-20); Calcium 8.3 mg/dl (8.5-10.1); Est GFR (African American) 94.1 ml/min; Est GFR (Non-African American) 81.2 ml/min; Potassium 3.8 mmol/L (3.5-5.1)
--- NOTE | 2021-12-13 08:41 | Surgery Progress Note ---
Date of Service December 13, 2021 Assessment & Plan (1) Inguinal hernia of left side with obstruction: Plan: s/p laparoscopic repair. Doing very well. Plan for discharge home today. Admission and Anticipated Discharge Date Admission Date: December 11, 2021 Subjective overall feels well. tolerating diet. ice pack has helped with left groin discom fort. no concerns and feels ready to go home. Physical Exam Constitutional: WD/WN, vitals as above Respiratory: normal respiratory effort, lungs clear to auscultation Cardiovascular: RRR, no murmur, no edema Gastrointestinal (Abdomen): normal bowel sounds, soft, nontender, no hepatosplenomegaly left groin with mild swelling, incisions clean Neurologic: awake; no focal motor deficits Psychiatric: A+Ox3, euthymic affect Results & Data ([facility]) Vital Signs (Past 12 Hours) Vital Signs Temp Pulse Resp BP Pulse Ox 12/13/21 08:00 36.6 C 74 16 126/65 95 12/12/21 23:08 36.5 C 75 16 122/67 96 Laboratory Results Abnormal lab results 12/13/21 Range/Units 06:15 Chloride 108 H (98-107) mmol/L Calcium 8.3 L (8.5-10.1) mg/dl
[2021-12-13] MEDS: HEPARIN SOD 5,000 UNIT/0.5 ML VIAL SQ SCH (08:53)
--- NOTE | 2021-12-13 16:11 | Discharge Summary ---
Date of Service December 13, 2021 Admission HPI Per Admitting Provider An 86-year-old female with past medical history significant for hyperlipidemia, history of pancreatic cyst, history of hypothyroidism, history of ulcerative colitis, currently not on any medications; history of paraesophageal hernia, status post repair; general osteoarthrosis, presents with nausea, vomiting and found to have high-grade small-bowel obstruction. The patient lives alone, ambulates with cane and walker. Since yesterday 11 a.m., she was having lot of nausea and vomiting. When the daughter went home to check her, she was also having some shaking and with this persistent nausea, vomiting she was brought into the hospital and the imaging studies showing high-grade small-bowel obstruction.Seen by Surgery in the ER, planned for OR soon. NG tube placement was attempted, but could not be placed. Currently, the patient is resting comfortably, hemodynamically stable, has some greenish liquidy vomitus in the bag seen. Has some headache. Denies blurred visions, no earache, no runny nose, has sore throat from vomiting. Prior to this episode, she was eating and drinking okay. She denies any chest pain, no shortness of breath, no cough. Has some abdominal soreness from vomiting, had normal bowel movement yesterday morning. Normal bladder movements. Admission Exam Per Admitting Provider GENERAL: The patient is of moderate build, not in acute distress. VITAL SIGNS: Temperature 36.9, pulse 86, respiratory rate 16, blood pressure 145/86, oxygen 94% on room air. HEENT: Pupils equal, round and reactive to light. Oral mucosa moist. NECK: No JVD. No neck masses. CARDIOVASCULAR: S1 and S2 heard. Regular rate and rhythm. No murmur, no gallop. RESPIRATORY SYSTEM: Normal AP diameter. No accessory muscle use. No wheezing, no crackles. ABDOMEN: Soft, no abdominal sounds heard. No guarding. No rigidity. CENTRAL NERVOUS SYSTEM: Cranial nerves II-XII grossly intact, nonfocal. EXTREMITIES: Lower extremity edema present, no erythema seen Principal Diagnosis Small bowel obstruction due to left inguinal hernia Discharge Exam General: Lying comfortably in bed, not in distress, on room air HEENT: EOMI, GEETHA, MMM Chest: Clear breath sounds bilaterally, no wheezes or crackles CVS: Regular rate and rhythm, normal heart sounds, no murmur Abdomen: Soft, non tender, not distended, normal bowel sounds. Incisions clean dry intact Neuro: Awake, alert, oriented, conversing well, non focal Extremities: No cyanosis, clubbing Discharge Data Allergies Allergy/AdvReac Type Severity Reaction Status Date / Time alendronate sodium Allergy Intermediate body aches Verified 12/11/21 01:19 pantoprazole AdvReac Intermediate Diarrhea. Verified 12/11/21 01:19 risedronate sodium AdvReac Intermediate STOMACH Verified 12/11/21 01:19 PROBLEMS Consultations 12/11/21 05:23 Consult General Surgery Routine 12/11/21 05:24 ED Decision to Admit Stat Procedures Performed Operation Date: 12/11/21 07:00 Actual Procedures p Left Inguinal Hernia Repair with mesh and(Left) - Pardeep Camacho DO s Laparoscopic release of small bowel (Left) - Pardeep Camacho DO Ordered Studies 12/11/21 02:25 CT abd pelvis IV con only Urgent Hospital Course (1) Small bowel obstruction: (2) Inguinal hernia of left side with obstruction: 86 year old female with recurrent left inguinal hernia presented 12/11 with small bowel obstruction and is s/p surgery 12/11. unremarkable postoperative period. Tolerating diet well, pain controlled, had BM. Ambulating independently. Denies any needs at discharge. She is comfortable and stable for discharge. High grade Small bowel obstruction due to left inguinal hernia- s/p laparoscopic release of SBO and repair of left inguinal hernia with mesh by surgery 12/11. pain controlled. tolerating regular diet well. Passing gas. Had BM. Acquired hypothyroidism- continue synthroid Total Time Total Time Spent Total Time Spent (In Minutes): 35 Discharge Plan Discharge Items Patient Disposition: Home - Self-Care Reason For Visit: N/V Discharge Diagnosis: s/p laparoscopic inguinal hernia repair Condition on Discharge: Good Activity: As commented below Activity Comment: walking/ stairs OK Lifting: No more than 10 pounds Lifting Comment: for 2 weeks Bathing Comment: ok to shower over skin glue Exercise/Sports: Wait until after follow-up appointment Driving/Machine Use: 1 week Non-emergency contact: Surgeon Call non-emergency contact if: you have any medication questions, your symptoms worsen, your pain is not controlled, your temperature is above 101.5, your wound has increased redness, your wound has increased drainage and your wound pain has increased Follow-up/Referrals: Pardeep Camacho, DO [Surgeon] - (Please call to make an appt in 1-2 weeks) Paulie Diaz MD [Primary Care Provider] - Diet: Regular Addtl Attending Provider Instructions: ice pack to left groin as needed Pending Studies at Discharge: No Stand-Alone Forms: My [facility], Smoking Cessation Medications and DC Order Prescriptions: Continued multivitamin Tablet 1 tab PO DAILY RF: 0 calcium carbonate-vitamin D3 600 mg(1,500mg) -200 unit Tablet 1 tab PO QAM RF: 0 levothyroxine 50 mcg Tablet 50 mcg PO QAM RF: 0 cranberry 500 mg Capsule 500 mg PO QAM RF: 0 cholecalciferol (vitamin D3) [Vitamin D3] 25 mcg (1,000 unit) Tablet 25 mcg PO QAM RF: 0 omega-3 fatty acids 1,000 mg Capsule 1,000 mg PO DAILY RF: 0 aspirin 81 mg Tablet,Delayed Release (Dr/Ec) 81 mg PO QAM RF: 0 vitamin E 400 unit Capsule 400 unit PO DAILY RF: 0 Discharge Orders: Discharge Order (Routine); Ordered 12/13/21 Ordered By: Kajal Schwartz Admission Data Admit Date/Time: 12/11/21 06:10 Attending Provider: Jamir Valdez Admit Provider: Kevin Little Primary Care Provider: Paulie Diaz Other Providers: Pardeep Camacho ; Kevin Little Other Interventions: Discharge Summary Assessment (RN) Last Done: 12/13/21 09:12
== END 2021-12-13 11:08 | disposition home or self-care (01) | DRG 336 ==
LOC: ED 00:48 → SUATTDRO 06:10 → 3E 06:10

== ENCOUNTER 2022-02-25 07:49 | Observation (INO) ==
--- NOTE | 2022-02-16 13:41 | PAT Medication Instructions ---
Medication Instructions Date of Service February 16, 2022 Home Medications calcium carbonate 600 mg-vitamin D3 5 mcg (200 unit) tablet 1 tab PO QDL cholecalciferol (vitamin D3) 25 mcg (1,000 unit) tablet (Vitamin D3) 25 mcg PO QDL cranberry 500 mg capsule 500 mg PO QDL levothyroxine 50 mcg tablet 50 mcg PO QAM multivitamin 1 tab PO QDL aspirin 81 mg tablet,delayed release 81 mg PO QDL omega-3 fatty acids 1,000 mg capsule 1,000 mg PO QDL vitamin E 400 unit capsule 400 unit PO QDL acetaminophen 650 mg tablet,extended release 650 mg PO TID Continue as directed aspirin 81 mg tablet,delayed release 81 mg PO QDL (unless directed otherwise by surgeon) STOP taking 2 weeks before surgery omega-3 fatty acids 1,000 mg capsule 1,000 mg PO QDL vitamin E 400 unit capsule 400 unit PO QDL DO NOT take the morning of surgery calcium carbonate 600 mg-vitamin D3 5 mcg (200 unit) tablet 1 tab PO QDL cholecalciferol (vitamin D3) 25 mcg (1,000 unit) tablet (Vitamin D3) 25 mcg PO QDL cranberry 500 mg capsule 500 mg PO QDL multivitamin 1 tab PO QDL Take morning of surgery With a small sip of water, OTHERWISE NOTHING TO EAT OR DRINK AFTER MIDNIGHT: levothyroxine 50 mcg tablet 50 mcg PO QAM acetaminophen 650 mg tablet,extended release 650 mg PO TID(okay to take up to 4 hours prior to surgery if needed) Take evening before surgery acetaminophen 650 mg tablet,extended release 650 mg PO TID(if needed) Other Notes If you have any questions please call us at [phone] or [phone] or [phone] or [phone]
--- NOTE | 2022-02-17 14:19 | Anesthesiology Consultation ---
Date of Service February 17, 2022 Assessment & Plan (1) Encounter for pre-operative examination: - awaiting confirmed EKG. - PCP clearance 02/17/22 [facility]: "...hospitalized in November with a strangulated inguinal hernia requiring surgery. She did well with the surgery and postoperatively and have had no ongoing problems...no exertional chest pain or dyspnea. Although her overall activity is markedly limited by her left hip pain, she still vacuums her home while using a walker..." PCP awaiting PAT labs/testing review. - hospitalized at [facility] 12/11- for high grade SBO and left inguinal hernia s/p laparoscopic release and hernia repair with mesh 12/11. - COVID screening: Per assessment on 02/17/2022: Travel screen negative, no known COVID-19 positive contacts or current COVID-19 related symptoms in past 2 weeks. Pt vaccinated. Surgeon arranging preop COVID testing, scheduled 02/23/2022. Awaiting results. Chart Review Chart Review: Pending: Refer to Additional Notes / Consult section and Patient seen in Pre Admission Testing Teaching & Discussion Pre-Anesthesia Teaching/Discussion Notes: Instructed NPO after midnight before surgery, except medications with 15 cc of water. Medication instructions provided according to the PAT guidelines. History Surgery Operation Date: 02/25/22 10:25 Proposed Procedures p Left Total Hip Arthroplasty Cemented Femoral Component - Camilo Washington MD Height/Weight Height: 4 ft 11 in Weight: 54.431 kg Allergies Allergy/AdvReac Type Severity Reaction Status Date / Time alendronate sodium Allergy Intermediate body aches Verified 02/16/22 11:46 pantoprazole AdvReac Intermediate Diarrhea. Verified 02/16/22 11:46 risedronate sodium AdvReac Intermediate STOMACH Verified 02/16/22 11:46 PROBLEMS Medications Home Medications Medication Instructions Recorded Confirmed Last Taken calcium carbonate 600 mg-vitamin 1 tab PO QDL 07/23/20 02/16/22 09/02/20 D3 5 mcg (200 unit) tablet cholecalciferol (vitamin D3) 25 25 mcg PO QDL 07/23/20 02/16/22 09/02/20 mcg (1,000 unit) tablet (Vitamin D3) cranberry 500 mg capsule 500 mg PO QDL 07/23/20 02/16/22 09/02/20 levothyroxine 50 mcg tablet 50 mcg PO QAM 07/23/20 02/16/22 12/10/21 multivitamin 1 tab PO QDL 07/23/20 02/16/22 09/02/20 aspirin 81 mg tablet,delayed 81 mg PO QDL 12/11/21 02/16/22 Unknown release omega-3 fatty acids 1,000 mg 1,000 mg PO QDL 12/11/21 02/16/22 Unknown capsule vitamin E 400 unit capsule 400 unit PO QDL 12/11/21 02/16/22 12/10/21 acetaminophen 650 mg 650 mg PO TID 02/16/22 02/16/22 Unknown tablet,extended release Past Medical History Medical History Hiatal hernia History of anxiety controlled Hypothyroidism Osteoarthritis Pancreatic cyst Ulcerative colitis no meds Patient denies h/o stroke, seizures, heart attack, heart failure, DM, HTN, blood clots or blood transfusions. Exercise / Class Metabolic Activity III < 4 Walking/Shop/Light housework (ambulates with rolling walker, denies CP or SOB) Past Family History Family History Father Family hx of colon cancer Sister Family hx of colon cancer Other No family history of adverse response to anesthesia Past Surgical History Surgical History H/O bilateral salpingo-oophorectomy History of cataract surgery bilat History of colonoscopy History of esophagogastroduodenoscopy (EGD) History of herniorrhaphy TOTAL 8 HERNIA REPAIRS History of partial hysterectomy History of tonsillectomy History of tooth extraction History of total knee replacement RT S/P left inguinal hernia repair (12/11/21) Laparoscopic release of small bowel obstruction and repair of recurrent left inguinal hernia with mesh. Dr. Camacho 12/11/2021 Past Anesthesia History No Hx of Anesthesia Complications and No Family Hx of Anesthesia Complications History of PONV No Hx of Motion Sickness and History of PONV (denies needing scop patch) Social History Smoking Status: Never smoker Do You Dip or Chew Tobacco: No Hx Alcohol Use: No Hx Substance Use: No substance use type: does not use Review of Systems Patient denies chest pain, shortness of breath, dyspnea on exertion, snoring, witnessed apneas, reflux, fever, chills, cough, wheezing, or palpitations. Physical Exam Vital Signs Vitals BP 116/66 P 69 TEMP 98.7 SP02 99% on RA RESP 17 Physical Full cervical extension range of motion without pain TMD 3.5 finger breaths Mallampati Score 2 Dentition: edentulous, full upper and lower dentures Lungs: normal respiratory effort. Clear throughout to auscultation, no adventitious breath sounds Cardiac: regular rate and rhythm, no murmurs noted Carotid arteries: negative bruit bilat Lab Results Anesthesia Preop Results Results Anesthesia Widget: WBC 8.98 K/uL (4.8-10.8) 02/17/22 Hgb 12.5 g/dL (12.0-16.0) 02/17/22 Hct 39.6 % (37-47) 02/17/22 Plt 387 K/uL (130-400) 02/17/22 Na 138 mmol/L (136-145) 02/17/22 K 4.0 mmol/L (3.5-5.1) 02/17/22 Cl 103 mmol/L (98-107) 02/17/22 CO2 28 mmol/L (21-32) 02/17/22 BUN 16 mg/dl (6-23) 02/17/22 Creat 0.65 mg/dl (0.6-1.2) 02/17/22 Glucose Level 98 mg/dl (70-99(Fasting)) 02/17/22 PT 10.5 Seconds (9.0-12.0) 02/17/22 PTT 27.0 Seconds (21.0-31.0) 02/17/22 INR 1.0 (0.9-1.1) 02/17/22 HA1c 5.4 % (4.5-5.6) 02/17/22 Urine Color Yellow 02/17/22 Urine Appearance Clear (Clear) 02/17/22 Urine pH 6.0 (4.5-7.5) 02/17/22 Urine Specific [place] 1.023 (1.000-1.030) 02/17/22 Urine Protein Negative (Negative) 02/17/22 Urine Glucose (UA) Negative (Negative) 02/17/22 Urine Ketones Trace (Negative) H 02/17/22 Urine Blood Negative (Negative) 02/17/22 Urine Nitrite Negative (Negative) 02/17/22 Urine Bilirubin Negative (Negative) 02/17/22 Urine Urobilinogen Negative (Negative) 02/17/22 Urine Leukocyte Esterase Trace (Negative) H 02/17/22 Urine WBC (Auto) 1-5 /hpf (0-5) 02/17/22 Urine RBC (Auto) 0-4 /hpf (0-4) 02/17/22 Urine Hyaline Casts (Auto) 0 /lpf (0-5) 02/17/22 Urine Epithelial Cells (Auto) >30 /lpf (0-5) H 02/17/22 Urine Bacteria (Auto) Negative (Negative) 02/17/22 Blood Type O Positive 02/17/22 Antibody Screen NEGATIVE 02/17/22 Testing Laboratory Results PAT testing to be faxed to PCP for review/pre-op clearance. Chest X-Ray Date: 12/11/21 * 1 view* No lines and tubes are seen. The cardiomediastinal silhouette is normal. The lungs are clear. No evidence of pleural effusion or pneumothorax. Degenerative changes are seen in the bilateral shoulder joints. IMPRESSION: No acute chest disease. Other Testing Abdomen/pelvis CT 12/11/21 imaged inferior cardiac chambers are unremarkable. 6 mm benign solid nodule of the lingula is unchanged from 2012. 6 mm solid nodule the basal left lower lobe on image 27 is new from prior. Unchanged 5 mm subpleural solid nodule of the basal right lower lobe on image 50. No pneumatosis or pneumoperitoneum. Calcified granulomata of the spleen. Mild generalized pancreatic atrophy. Unremarkable adrenal glands. Cholecystectomy with pneumobilia, intrahepatic and extrahepatic biliary ductal dilation which is likely postsurgical. Patent portal vein. No hepatic mass identified. Unremarkable kidneys without hydronephrosis. Urinary bladder is decompressed with wall thickening. Uterus is either atrophic or surgically absent. Atherosclerosis of the abdominal aorta without aneurysm. No adenopathy. Distended air and fluid-filled stomach. High-grade small bowel obstruction secondary to obstructive loop of small bowel which extends into the small left inguinal hernia, image 346 of series 3. Upstream small bowel dilation measuring up to 3.6 cm. Decompressed loops of small bowel distal to the site of obstruction. A small fat and fluid filled right inguinal hernia is also present. Colonic diverticulosis. Subcentimeter perirectal lymph nodes. Mild wall thickening is noted within the transverse colon on image 224, likely secondary to partial distention. The appendix is noninflamed. Mild generalized body wall edema. Degenerative changes of the spine, pelvis and hips. Severe left hip osteoarthritis. IMPRESSION: 1. There is a small left inguinal hernia which contains a single loop of small bowel resulting in a high-grade small bowel obstruction. No pneumatosis or pneumoperitoneum. s/p surgical intervention 12/11/21. 2. Cholecystectomy with pneumobilia. 3. Colonic diverticulosis. 4. Additional findings as above.
--- NOTE | 2022-02-17 15:23 | History & Physical Report ---
Date of Service February 17, 2022 Assessment & Plan (1) Osteoarthritis of left hip: Plan: PRE-OP Diagnosis: Left hip osteoarthritis Planned Procedure: Left total hip arthroplasty (cemented) PlanPatient is scheduled to undergo this procedure at the [facility] with 23-hour observation admission next , February 25, [address] Washington. Risks and complications of the procedure such as: Infection, bleeding, pain, scarring, nerve blood vessel damage, weakness, wound problems, stiffness, incomplete relief of symptoms, hardware failure, hardware loosening, wear, fracture, tendon or ligament injury, Dislocation, leg length inequality, blood clots, embolism, heart attack, stroke and were explained to the patient at her visit today. Informed consent to perform the procedures was obtained. Patient also understands risks of proceeding with surgical intervention during the COVID-19 pandemic. Currently she is asymptomatic and understands that she will need to be tested prior to surgery. Patient saw her primary care provider Dr. Diaz earlier this morning and was cleared for surgical intervention. She is scheduled to meet with anesthesia later this afternoon and while there she will obtain a CBC with differential, complete metabolic panel, PT/INR, blood type and screen, urinalysis, urine culture and sensitivity, EKG, hemoglobin A1c, nasal culture for MRSA. During today's visit we discussed Postoperative planning. We reviewed total hip precautions. We talked about the use of antibiotics prior to dental procedures following joint replacement surgery. I provided the patient with paperwork to obtain a handicap placard for her vehicle. I advised the patient we would like her to purchase a hip kit prior to surgery. She states she already has a walker, raised toilet seat and shower chair. Advised the patient we will provide her prescriptions for a narcotic pain medication, anti-inflammatory and recommend that she use an 81 mg aspirin twice daily for the first 30 days postoperatively for blood clot prevention. We also discussed use of the abduction pillow for the first 6 weeks postoperatively when she is sleeping. We will plan on discharging her postoperative day 1 Home with in-home physical therapy for the first 2 weeks. At her 2-week visit with myself on March 12 at 2 PM I will provide her with rehab protocol and an order for outpatient physical therapy. Patient and her daughter verbalized understanding of all information provided during today's visit. Thanks for the care that they have received. If they have questions or concerns that should arise prior to surgery, they will contact clinic. History of Present Illness Chief Complaint: Chief Complaint: Severe left hip pain Primary Care Provider: Paulie Diaz MD History of Present Illness (including history relevant to procedure): This 86-year-old female presents the clinic today for preoperative history and physical. Patient states she fell about 6 years ago and had x-rays performed of her hip and was diagnosed with osteoarthritis. She states the pain became much worse this past fall. She states that over the past few months has been and affecting her gait and she had to begin use of a walker to help her move around her home. She states that at times the pain is unbearable. She states she has very limited range of motion of her left lower extremity due to the pain she experiences in her groin area. She feels that she has lost considerable strength in the left lower extremity and has to use her right leg to help her lift it. Review Of Systems: A 12 point review systems performed is unremarkable except for those things stated in the HPI past medical history. Past Medical History: Problems: Left hip pain Hypothyroidism Procedure History Procedure Procedure Date Comments Hernia repair Allergies and Sensitivities: No Known Medication Allergies Social history: Completely unremarkable Family history: Negative Current Home Meds: (Last Updated 02/17 13:04) levothyroxine (levothyroxine 50 mcg (0.05 mg) oral tablet) Allergies Allergy/AdvReac Type Severity Reaction Status Date / Time alendronate sodium Allergy Intermediate body aches Verified 02/16/22 11:46 pantoprazole AdvReac Intermediate Diarrhea. Verified 02/16/22 11:46 risedronate sodium AdvReac Intermediate STOMACH Verified 02/16/22 11:46 PROBLEMS Home Medications Medication Instructions Recorded Confirmed Type calcium carbonate 600 mg-vitamin 1 tab PO QDL 07/23/20 02/16/22 History D3 5 mcg (200 unit) tablet cholecalciferol (vitamin D3) 25 25 mcg PO QDL 07/23/20 02/16/22 History mcg (1,000 unit) tablet (Vitamin D3) cranberry 500 mg capsule 500 mg PO QDL 07/23/20 02/16/22 History levothyroxine 50 mcg tablet 50 mcg PO QAM 07/23/20 02/16/22 History multivitamin 1 tab PO QDL 07/23/20 02/16/22 History aspirin 81 mg tablet,delayed 81 mg PO QDL 12/11/21 02/16/22 History release omega-3 fatty acids 1,000 mg 1,000 mg PO QDL 12/11/21 02/16/22 History capsule vitamin E 400 unit capsule 400 unit PO QDL 12/11/21 02/16/22 History acetaminophen 650 mg 650 mg PO TID 02/16/22 02/16/22 History tablet,extended release Past Med/Surg History Medical History Hiatal hernia History of anxiety controlled Hypothyroidism Osteoarthritis Pancreatic cyst Ulcerative colitis no meds Surgical History H/O bilateral salpingo-oophorectomy History of cataract surgery bilat History of colonoscopy History of esophagogastroduodenoscopy (EGD) History of herniorrhaphy TOTAL 8 HERNIA REPAIRS History of partial hysterectomy History of tonsillectomy History of tooth extraction History of total knee replacement RT S/P left inguinal hernia repair (12/11/21) Laparoscopic release of small bowel obstruction and repair of recurrent left inguinal hernia with mesh. Dr. Camacho 12/11/2021 Family History Father Family hx of colon cancer Sister Family hx of colon cancer Other No family history of adverse response to anesthesia Social History Smoking Status: Never smoker Second Hand Exposure: No; Hx Alcohol Use: No Hx Substance Use: No Preferred Language: Thai Communication Ability: Effective Visual Impairment: No Limitations Mobile Ui Developer Required: No Beliefs That Will Affect Care: None Current Living Situation: Alone Feels Safe at Home: Yes Assistive Devices: Denture - Upper, Denture - Lower, Glasses and Walker Review of Systems All systems reviewed & are unremarkable except as noted in Subjective Physical Exam Physical Exam: Physical Exam: (relevant to the procedure, including heart and lung evaluation) General: Alert and oriented x3 with proper grooming and hygiene Eyes: Pupils are equal round and reactive to light with accommodation. Extraocular moods are intact Throat: Deferred due to COVID-19 precautions Cardiac: Regular rate and rhythm with no murmurs or gallops appreciated Lungs: Clear to auscultation throughout with no wheezing, rales or rhonchi Abdomen: Nonobese, nondistended, nontender with normoactive bowel sounds Extremities: Left hip: Patient is unable to perform an active straight leg raise test but is able to do to an active assisted straight leg raise. She is able to actively dorsi and plantarflex her foot. Logroll test is extremely positive. Patient did not tolerate hip flexion or attempted passive internal or external rotation due to her pain. Patient has exquisite tenderness to palpation in her groin. She is neurovascularly intact in left lower extremity. Neuro: Cranial nerves II through XII are intact no motor or sensory deficit Skin: Normal appearance no open skin areas or discharge Results & Data ([facility]) Diagnostic Findings Studies(relevant to the procedure): x-rays performed in our clinic today were reviewed and show end-stage [id number] arthritis affecting the left hip joint
[~2022-02-25 07:49] MED LIST changes: +ACETAMINOPHEN 500 MG TAB PO SCH; -ASCO500T16 PO; -ASPCH81 PO; +BUPIVACAINE 0.5 % 5 MG/1 ML PF 10ML VIAL ONE; -CALCTAB7 PO; -CLX20 PO; +CeleBREX 200 MG CAP PO SCH; +FAMOTIDINE 20 MG TAB PO SCH; -FLV400 PO; -FURO20TA PO; -GREE315C PO; -LEVO50TA PO; +LR 15ML/HR IV SCH; +LR 60ML/HR IV SCH; -MCRK20 PO; -MULTTAB58 PO; -OMEG10007 PO; -POLY335025 PO; -RANI300T PO; +ROPIVACAINE 0.5% HCL/PF 150 MG, BUPIVACAINE 0.75% MPF 20 ML, EPINEPHrine 0.15 MG, Ketor... INFIL SCH; +Scopolamine 1 MG TDSY TD SCH; +TRANEXAMIC ACID 1,000 MG **IV Intra-op IV SCH; +TRANEXAMIC ACID 1,000 MG **IV Pre-op IV SCH; -VITA100C2 PO; +ceFAZolin 2000MG 2,000 MG/15 ML SYR IV SCH; +dexAMETHasone 4 MG TAB PO SCH; +traMADol HCL 50 MG TABLET PO SCH
[2022-02-25] MEDS ORDERED: ATROPINE SULFATE 0.1 MG/ML 10ML SYR IV PRN (09:58)
[2022-02-25] MEDS ORDERED: ePHEDrine sulfate 50 MG/ML AMP IV PRN (09:58)
[2022-02-25] MEDS ORDERED: PROPOFOL IV EMULSION 10 MG/ML 20 ML VIAL IV ONE ×2 (10:07→11:21)
[2022-02-25] MEDS ORDERED: LIDOCAINE 2% 2 ML VIAL/AMP(20MG/ML) INFIL ONE (10:07)
[2022-02-25] MEDS ORDERED: fentaNYL citrate 100 MCG/2 ML VIAL ONE (10:07)
[2022-02-25] MEDS ORDERED: MIDAZOLAM HCL 1 MG/ML 2ML VIAL ONE (10:08)
--- NOTE | 2022-02-25 10:26 | History & Physical Bridge Note ---
Date of Service February 25, 2022 History & Physical Bridge Note I have examined the patient, reviewed the History & Physical and in the interval since the performance of the History & Physical I have noted the following changes of clinical significance: no changes noted
[2022-02-25] MEDS ORDERED: ORTHO JOINT ANESTHETIC ONE (10:39)
[2022-02-25] MEDS ORDERED: ePHEDrine sulfate 50 MG/ML SYR ONE (11:14)
[2022-02-25] MEDS ORDERED: PHENYLEPHRINE HCL 10 MG/ML VIAL ONE (12:07)
[2022-02-25] MEDS ORDERED: diphenhydrAMINE 50 MG/ML VIAL IV PRN (13:12)
[2022-02-25] MEDS ORDERED: MAGNESIUM HYDROXIDE SUSP 30 ML UDC PO PRN (13:12)
[2022-02-25] MEDS ORDERED: oxyCODONE HCL IR 5 MG TAB (IMMEDIATE RELEASE) PO PRN (13:12)
[2022-02-25] MEDS ORDERED: ONDANSETRON INJ 2 MG/ML 2 ML VIAL IV PRN (13:12)
[2022-02-25] MEDS ORDERED: METOCLOPRAMIDE HCL INJ 5 MG/ML 2 ML VIAL IV PRN (13:12)
[2022-02-25] MEDS ORDERED: ALUMINUM/MAGNESIUM SUSP 30 ML UDC PO PRN (13:12)
[2022-02-25] MEDS ORDERED: bisacodyL 10 MG SUPP PR PRN (13:12)
[2022-02-25] MEDS ORDERED: NALOXONE HCL 0.4 MG/1 ML VIAL/CARP IV PRN (13:12)
--- NOTE | 2022-02-25 13:12 | Operative Report ---
Post Operative Report Pre & Post Diagnosis Operation Date: 02/25/22 10:25 Pre-Op Diagnosis: Osteoarthritis Hip Left Post-Op Diagnosis: Osteoarthritis Hip Left I identified the patient and participated in the time-out.: Yes Procedure Operation Date: 02/25/22 10:25 Actual Procedures p Left Total Hip Arthroplasty, Cemented Femoral Component(Left) - Camilo kay MD Surgeon Camilo Washington MD Continuous Wave Operator Kendy Garcia PA-C; Ashley Adamson MS-2 Estimated Blood Loss 250 Findings Consistent with Post-Op Diagnosis Specimens femoral head Description of Procedure I was present during the entire case assisting with positioning, prepping, draping, wound retraction, wound closure, dressing and abduction pillow placement. No fellow present. Please see Dr. Washington procedure note for specifics. I attest to the content of the Intraoperative Record and any orders documented therein. Any exceptions are noted below.
--- NOTE | 2022-02-25 13:21 | Operative Report ---
Post Operative Report Pre & Post Diagnosis Operation Date: 02/25/22 10:25 Pre-Op Diagnosis: Osteoarthritis Hip Left, protrusio acetabuli Post-Op Diagnosis: Osteoarthritis Hip Left, protrusio acetabuli I identified the patient and participated in the time-out.: Yes Procedure Operation Date: 02/25/22 10:25 Actual Procedures p Left Total Hip Arthroplasty, Cemented Femoral Component(Left) - Camilo Washington MD Surgeon Camilo Washington MD Fiber Optic Assembler CARRILLO Garcia PA-C and Ashley Adamson MS-2. No resident was available Estimated Blood Loss 250 Findings Consistent with Post-Op Diagnosis Specimens Left femoral head Anesthesia Type Spinal MAC Complications none Disposition Disposition: Recovery Room Indications 86-year-old female with left hip pain refractory to conservative management. X- rays demonstrate severe osteoarthritis and protrusio acetabuli. Reactive bone changes are noted along the quadrilateral plate. I had a long discussion with her about her diagnosis and treatment options. She was a candidate for a cemented left total hip arthroplasty. She understood that she was at elevated risk for intraoperative complications as well as postoperative complications secondary to her age and protrusio acetabuli including fracture and instability as well as medical complications. After reviewing all the risks and benefits of surgery, alternatives, and expected outcomes she elected to proceed. All questions were answered. Informed consent was signed. Description of Procedure Patient was identified in the preoperative holding area her surgical site was marked. She was given a spinal anesthetic then brought back to the main operating room where she is placed the operative table and carefully moved in the lateral decubitus position. Axillary roll was placed. Stool Rodriguez positioner was used to stabilize the pelvis. She was then prepped and draped in the usual sterile fashion. Prior to incision a multidisciplinary timeout was called. All in the room were in agreement. We began by making a 16 cm long incision for a posterior approach of the hip. This was somewhat longer than I normally would for a patient of her size but I was concerned about not being able to dislocate her hip because of the protrusio acetabuli I dissected down through subcutaneous tissues to the level of fascia. Fascia was incised in line with the incision. Charnley bow was placed. Trochanteric bursa and fatty tissues were reflected posteriorly to expose the underlying piriformis short external rotators of the hip as well as the quadratus femoris. Quadratus femoris was released subperiosteally and allowed to retract. I then dissected the piriformis and short external rotators off the posterior aspect of the hip. Hip capsule was then incised using a box cut. Fortunately I was able to dislocate the hip and then perform a femoral neck osteotomy at 7 mm above the lesser trochanter which was our preoperative plan. The femoral head revealed severe osteoarthritic changes including severe cartilage loss and dimpling of areas of the surface of the femoral head. Next the acetabulum was exposed. She had severe cartilage loss as well as subchondral sclerosis. The labrum was then sharply excised. We started with a size 44 mm reamer. This was used to just barely touch the medial wall. I then sequentially reamed up all the way to a size 52 reamer again applying very minimal pressure so as to not inadvertently ream through the medial wall of her acetabulum and into the pelvis. Once this reaming was complete we had bleeding bone circumferentially around the acetabulum and had removed the small amounts of cartilage that she had remaining. I took some bone marrow from the femoral head as well as from the reamings and packed this into the cotyloid fossa. The 52 mm [place] cup was then opened up and impacted down gently into the acetabulum. Two 6.5 mm cancellous screws were then placed to fixate the acetabulum within the pelvis. Excellent fixation was obtained. Next a trial liner for 36 mm femoral head was placed in the acetabulum. The femur was exposed. The lateral neck was removed with box osteotome. Intramedullary guide was placed followed by the lateralizing reamer. I then was able to broach her up to a size 5 component. Of note we did have a fair amount of bleeding through the intramedullary canal the femur is very instrumenting the femur. Anesthesiologist did have to put her on small amounts of norepinephrine to maintain her blood pressure which remained on until the end of the case. A trial 36 mm head with a standard offset neck was then attached and the hip was atraumatically reduced. Leg lengths were just a little short on the operative side. She had full extension and external rotation. With flexion at 90 degrees her internal rotation was to approximately 40 degrees before levering out of the cup. Because of her age and risk for instability I elected to switch to a dual mobility component at this time to get better stability exam. The hip was therefore reduced and the femoral trial was removed. Acetabulum was reexposed and the metal liner for the dual mobility acetabulum was opened up and then impacted into the shell. The Quintero taper engaged appropriately. Next the real size 5 cemented Lamb femoral stem was opened up and cement was mixed on the back table. The femoral canal was irrigated out and dried. Cement restrictor was placed down the femoral canal at the appropriate length. I then cemented the femoral component into place holding the component approximately 20 degrees of femoral anteversion until the cement cured. Once the cemented fully cured we then applied the +4 dual mobility head onto the trunnion and reduced the hip. Her leg lengths were now symmetric and the hip still had full extension with no impingement external rotation. She was stable in the sleeper position. At 90 degrees of hip flexion she could be internally rotated 55 degrees before levering out of the cup. I was very happy with the stability exam. The trial femoral head was therefore removed and the real dual mobility head was opened up on the back table. This was assembled and then gently impa cted onto the trunnion. The hip was atraumatically reduced. The wound was then irrigated out with dilute Betadine solution. Periarticular injection cocktail was placed. We then began to close. Short external rotators and posterior capsule repaired using #2 Vicryl through drill holes in the posterior aspect of the greater trochanter. The fascia was run with a looped #1 PDS. Subcutaneous layer was closed with #1 PDS in running fashion. Deep dermal layer was closed with running 2-0 Vicryl suture. Skin was closed with zip line and Dermabond. Sterile dressings were applied. Patient was then transferred recovery room in stable condition with an abduction pillow in place. Postoperative course: Patient be admitted to the floor. She will be on aspirin for DVT prophylaxis. Posterior hip precautions. Weightbearing as tolerated. I attest to the content of the Intraoperative Record and any orders documented therein. Any exceptions are noted below.
--- NOTE | 2022-02-25 13:52 | Anesthesiology Progress Note ---
Date of Service February 25, 2022 Anesthesia Post Procedure Vital Signs Vital Signs: Temp Pulse Resp BP BP Pulse Ox 02/25/22 13:40 36.7 C 80 14 112/53 L 96 02/25/22 13:30 80 14 103/61 93 02/25/22 13:20 81 17 114/58 L 97 02/25/22 13:11 36.6 C 84 16 137/57 L 100 02/25/22 08:40 36.7 C 82 16 157/79 H 100 Pain Intensity Left Hip: Pain Intensity: 9 Transfer of Care Handoff Completed per policy Notes Mental Status: alert / awake / arousable and participated in evaluation Patient Amnestic to Procedure: Yes Nausea / Vomiting: adequately controlled Pain: adequately controlled Airway Patency, RR, SpO2: stable & adequate BP & HR: stable & adequate Hydration State: stable & adequate Neuraxial Anesthesia: was administered and sensory block is resolving Anesthetic Complications: no major complications apparent
--- NOTE | 2022-02-25 13:57 | XRay Report ---
XR pelvis 1-2V routine HISTORY: 86 years-old Female Post Surgical status post placement of a left hip total joint arthropla sty COMPARISON: Pelvis radiographs 02/17/2022 TECHNIQUE: Portable AP view of the pelvis FINDINGS: Moderate right hip osteoarthritis. Demineralized appearance of the bones. Satisfactory alignment of t he left hip total joint arthroplasty. Expected postoperative soft tissue swelling with deep tissue ai r surrounding the left hip. Herniorrhaphy coils redemonstrated. No acute fracture, malalignment or un expected opaque foreign body. IMPRESSION: Left hip total joint arthroplasty with expected postoperative changes. ACT 112: Negative or not required by law. The above report was generated using voice recognition software. It may contain grammatical, syntax o r spelling errors. Electronically signed by: Van Moctezuma M.D. 02/25/2022 1:56 PM
[2022-02-25] MEDS: ACETAMINOPHEN 500 MG TAB PO SCH ×2 (16:03→21:37)
[2022-02-25] MEDS: SODIUM CHLORIDE 0.9% 1000ML 1,000 ML IV SCH (16:06)
[2022-02-25] MEDS: Scopolamine CHECK PATCH PLACEMENT SCH (16:40)
[2022-02-25] MEDS ORDERED: TRANEXAMIC ACID / 0.7% NACL 1,000 MG/100 ML BAG IV SCH (19:15)
[2022-02-25] MEDS: ceFAZolin 2000MG 2,000 MG/15 ML SYR IV SCH (19:51)
[2022-02-25] MEDS ORDERED: SENNA 8.6 MG TAB PO SCH (21:00)
[2022-02-25] MEDS ORDERED: ASPIRIN 81 MG ECTAB PO SCH (21:00)
[2022-02-25] MEDS: DOCUSATE SODIUM 100 MG CAP PO SCH (21:35)
[2022-02-25] MEDS: ASPIRIN 81 MG ECTAB PO SCH (21:35)
[2022-02-25] MEDS: KETOROLAC TROMETHAMINE 15 MG/ML VIAL IV SCH (21:37)
[2022-02-26] MEDS: Scopolamine CHECK PATCH PLACEMENT SCH ×2 (00:31→07:21)
[2022-02-26] MEDS: SODIUM CHLORIDE 0.9% 1000ML 1,000 ML IV SCH (01:55)
[2022-02-26] MEDS: KETOROLAC TROMETHAMINE 15 MG/ML VIAL IV SCH ×2 (03:57→07:23)
[2022-02-26] MEDS: ceFAZolin 2000MG 2,000 MG/15 ML SYR IV SCH (04:10)
[2022-02-26] MEDS: ACETAMINOPHEN 500 MG TAB PO SCH (05:36)
[2022-02-26 06:19] LABS: Basophils # (auto) 0.01 K/uL (0-0.2); Basophils % (auto) 0.1 %; Hematocrit (blood only) 29.8 % (37-47); Immature Granulocytes # (auto) 0.01 K/uL (0.00-0.02); Immature Granulocytes % (auto) 0.1 %; Lymphocytes # (auto) 0.96 K/uL (1.2-3.4); Lymphocytes % (auto) 9.9 %; Mean Corpuscular Hemoglobin 28.9 pg (25-34); Mean Corpuscular Hgb Conc 33.6 g/dL (32-36); Mean Corpuscular Volume 86.1 fL (80-100); Mean Platelet Volume 9.4 fL (7.4-10.4); Monocytes # (auto) 0.85 K/uL (0.11-0.59); Monocytes % (auto) 8.7 %; Neutrophils # (auto) 7.89 K/uL (1.4-6.5); Neutrophils % (auto) 81.2 %; Platelet Count 301 K/uL (130-400); RDW Coefficient of Variation 14.5 % (11.5-14.5); RDW Standard Deviation 45.6 fL (36.4-46.3); Red Blood Count 3.46 M/uL (4.2-5.4); White Blood Count 9.72 K/uL (4.8-10.8)
[2022-02-26 06:41] LABS: BUN Creatinine Ratio 18.2 (10-20); Calcium 8.2 mg/dl (8.5-10.1); Creatinine Clr Calc Pharmacy 38.9 ml/min; Est GFR (Non-African American) 69.9 ml/min; Potassium 4.2 mmol/L (3.5-5.1)
[2022-02-26] MEDS: DOCUSATE SODIUM 100 MG CAP PO SCH (07:22)
[2022-02-26] MEDS: ASPIRIN 81 MG ECTAB PO SCH (07:23)
[2022-02-26] MEDS ORDERED: dexAMETHasone 4 MG TAB PO SCH (08:00)
[2022-02-26] MEDS ORDERED: LEVOTHYROXINE SODIUM 50 MCG TABLET PO SCH (09:00)
[2022-02-26] MEDS ORDERED: MULTIVITAMIN TAB PO SCH (09:00)
--- NOTE | 2022-02-26 10:12 | Orthopedic Progress Note ---
Date of Service February 26, 2022 Assessment & Plan (1) S/P total hip arthroplasty: Plan: Total hip precautions reviewed PT/OT Weightbearing as tolerated with walker assistance Ice with easy wrap DVT prophylaxis with aspirin and LEANDRO stockings Abduction pillow use x6 weeks Keep Silverlon dressing in place Pain control with p.o. medication Plan is to discharge home today with in-home physical therapy Follow-up with [facility] orthopedics previously scheduled With questions contact our clinic at [phone] Admission and Anticipated Discharge Date Admission Date: February 25, 2022 Subjective This 86-year-old female is day 1 status post left total hip arthroplasty. She states that she is doing very well. She states she has no pain. She states that she did very well with physical therapy and Occupational Therapy this morning. She states that last night she did have some hallucinations which she attributes to some of the pain medication she was on and did remove her outer dressing. She states she has been able to transition from her bed to the bathroom and void multiple times without issue or discomfort. She denies chest pain, shortness of breath, fever, chills, sweats, lethargy, numbness or tingling in her left lower extremity. She also denies nausea, vomiting, diarrhea or difficulty voiding. She states that she has yet to move her bowels. Review of Systems Review of Systems: All systems reviewed & are unremarkable except as noted in Subjective Physical Exam Physical Exam: Left hip; Silverlon dressing was slightly peeled away so I replaced it with a new Silverlon. The zipper line was intact. There is no drainage from the surgical incision site. Patient was able to transition from a seated to a standing position with her walker without issue. She was able to perform an active straight leg raise test. She is able to actively dorsi and plantarflex her foot. She had no pain with logroll testing. She had no pain with hip flexion to 90 degrees. There is no pain with light passive internal or external hip rotation. Quad strength was 3 out of 5. Patient was neurovascularly intact in the left lower extremity. Her calf is soft and supple nontender to palpation. Results & Data ([facility]) Vital Signs (Past 12 Hours) Vital Signs Temp Pulse Resp BP BP Pulse Ox 02/26/22 07:57 36.4 C L 66 16 90/52 L 97 02/26/22 05:37 36.4 C L 63 16 101/61 97 02/26/22 01:57 36.4 C L 77 18 116/69 97 Diagnostic Findings Laboratory Results WBC 9.72 K/uL (4.8-10.8) 02/26/22 06:04 RBC 3.46 M/uL (4.2-5.4) L 02/26/22 06:04 Hgb 10.0 g/dL (12.0-16.0) L 02/26/22 06:04 Hct 29.8 % (37-47) L 02/26/22 06:04 MCV 86.1 fL (80-100) 02/26/22 06:04 MCH 28.9 pg (25-34) 02/26/22 06:04 MCHC 33.6 g/dL (32-36) 02/26/22 06:04 RDW Std Deviation 45.6 fL (36.4-46.3) 02/26/22 06:04 RDW Coeff of Angelic 14.5 % (11.5-14.5) 02/26/22 06:04 Plt Count 301 K/uL (130-400) 02/26/22 06:04 MPV 9.4 fL (7.4-10.4) 02/26/22 06:04 Immature Gran % (Auto) 0.1 % 02/26/22 06:04 Neut % (Auto) 81.2 % 02/26/22 06:04 Lymph % (Auto) 9.9 % 02/26/22 06:04 Chase % (Auto) 8.7 % 02/26/22 06:04 Eos % (Auto) 0.0 % 02/26/22 06:04 Baso % (Auto) 0.1 % 02/26/22 06:04 Neut # (Auto) 7.89 K/uL (1.4-6.5) H 02/26/22 06:04 Lymph # (Auto) 0.96 K/uL (1.2-3.4) L 02/26/22 06:04 Chase # (Auto) 0.85 K/uL (0.11-0.59) H 02/26/22 06:04 Eos # (Auto) 0.00 K/uL (0-0.5) 02/26/22 06:04 Baso # (Auto) 0.01 K/uL (0-0.2) 02/26/22 06:04 Immature Gran # (Auto) 0.01 K/uL (0.00-0.02) 02/26/22 06:04 Sodium 138 mmol/L (136-145) 02/26/22 06:04 Potassium 4.2 mmol/L (3.5-5.1) 02/26/22 06:04 Chloride 107 mmol/L (98-107) 02/26/22 06:04 Carbon Dioxide 24 mmol/L (21-32) 02/26/22 06:04 Anion Gap 7 (3-11) 02/26/22 06:04 BUN 14 mg/dl (6-23) 02/26/22 06:04 Creatinine 0.77 mg/dl (0.6-1.2) 02/26/22 06:04 Est Cr Clr Drug Dosing 38.9 ml/min 02/26/22 06:04 Est GFR ( Amer) 81.0 ml/min 02/26/22 06:04 Est GFR (Non-Af Amer) 69.9 ml/min 02/26/22 06:04 BUN/Creatinine Ratio 18.2 (10-20) 02/26/22 06:04 Glucose 121 mg/dl (70-99(Fasting)) H 02/26/22 06:04 Calcium 8.2 mg/dl (8.5-10.1) L 02/26/22 06:04 SARS-CoV-2, RNA, NAAT NEGATIVE (NEGATIVE) 02/25/22 08:17 Impressions Pelvis X-Ray 02/25/22 13:12 XR pelvis 1-2V routine HISTORY: 86 years-old Female Post Surgical status post placement of a left hip total joint arthroplasty COMPARISON: Pelvis radiographs 02/17/2022 TECHNIQUE: Portable AP view of the pelvis FINDINGS: Moderate right hip osteoarthritis. Demineralized appearance of the bones. Satisfactory alignment of the left hip total joint arthroplasty. Expected postoperative soft tissue swelling with deep tissue air surrounding the left hip. Herniorrhaphy coils redemonstrated. No acute fracture, malalignment or unexpected opaque foreign body. IMPRESSION: Left hip total joint arthroplasty with expected postoperative changes. ACT 112: Negative or not required by law. The above report was generated using voice recognition software. It may contain grammatical, syntax or spelling errors. Electronically signed by: Van Moctezuma M.D. 02/25/2022 1:56 PM
--- NOTE | 2022-02-26 10:28 | Discharge Summary ---
Date of Service February 26, 2022 Admission HPI Per Admitting Provider History of Present Illness (including history relevant to procedure): This 86-year-old female presents the clinic today for preoperative history and physical. Patient states she fell about 6 years ago and had x-rays performed of her hip and was diagnosed with osteoarthritis. She states the pain became much worse this past fall. She states that over the past few months has been and affecting her gait and she had to begin use of a walker to help her move around her home. She states that at times the pain is unbearable. She states she has very limited range of motion of her left lower extremity due to the pain she experiences in her groin area. She feels that she has lost considerable strength in the left lower extremity and has to use her right leg to help her lift it. Review Of Systems: A 12 point review systems performed is unremarkable except for those things stated in the HPI past medical history. Past Medical History: Problems: Left hip pain Hypothyroidism Procedure History Procedure Procedure Date Comments Hernia repair Allergies and Sensitivities: No Known Medication Allergies Social history: Completely unremarkable Family history: Negative Current Home Meds: (Last Updated 02/17 13:04) levothyroxine (levothyroxine 50 mcg (0.05 mg) oral tablet) Admission Exam Per Admitting Provider Physical Exam: (relevant to the procedure, including heart and lung evaluation) General: Alert and oriented x3 with proper grooming and hygiene Eyes: Pupils are equal round and reactive to light with accommodation. Extraocular moods are intact Throat: Deferred due to COVID-19 precautions Cardiac: Regular rate and rhythm with no murmurs or gallops appreciated Lungs: Clear to auscultation throughout with no wheezing, rales or rhonchi Abdomen: Nonobese, nondistended, nontender with normoactive bowel sounds Extremities: Left hip: Patient is unable to perform an active straight leg raise test but is able to do to an active assisted straight leg raise. She is able to actively dorsi and plantarflex her foot. Logroll test is extremely positive. Patient did not tolerate hip flexion or attempted passive internal or external rotation due to her pain. Patient has exquisite tenderness to palpation in her groin. She is neurovascularly intact in left lower extremity. Neuro: Cranial nerves II through XII are intact no motor or sensory deficit Skin: Normal appearance no open skin areas or discharge Principal Diagnosis Left hip osteoarthritis Discharge Exam Left hip; Silverlon dressing was slightly peeled away so I replaced it with a new Silverlon. The zipper line was intact. There is no drainage from the surgical incision site. Patient was able to transition from a seated to a standing position with her walker without issue. She was able to perform an active straight leg raise test. She is able to actively dorsi and plantarflex her foot. She had no pain with logroll testing. She had no pain with hip flexion to 90 degrees. There is no pain with light passive internal or external hip rotation. Quad strength was 3 out of 5. Patient was neurovascularly intact in the left lower extremity. Her calf is soft and supple nontender to palpation. Discharge Data Allergies Allergy/AdvReac Type Severity Reaction Status Date / Time alendronate sodium AdvReac Intermediate body aches Verified 02/25/22 08:36 pantoprazole AdvReac Intermediate Diarrhea. Verified 02/25/22 08:36 risedronate sodium AdvReac Intermediate STOMACH Verified 02/25/22 08:36 PROBLEMS Procedures Performed Operation Date: 02/25/22 10:25 Actual Procedures p Left Total Hip Arthroplasty, Cemented Femoral Component(Left) - Camilo hamilton MD Hospital Course (1) S/P total hip arthroplasty: Patient had an uneventful overnight stay except for a small episode of h allucinations during which she removed her outer dressing. She attributes this to the narcotic pain medication that she was given. I advised her that I was going to prescribe her some oxycodone for postoperative pain control and advised her to only take a half of a tablet for breakthrough pain otherwise she can use the diclofenac sodium and extra strength Tylenol. She states that her daughter and granddaughter are coming to stay with her. She is also set up with in-home physical therapy for the first 2 weeks postoperatively. Patient is very pleased with the results of her surgery and has no pain currently. Total hip precautions reviewed PT/OT Weightbearing as tolerated with walker assistance Ice with easy wrap DVT prophylaxis with aspirin and LEANDRO stockings Abduction pillow use x6 weeks Keep Silverlon dressing in place Pain control with p.o. medication Plan is to discharge home today with in-home physical therapy Follow-up with [facility] orthopedics previously scheduled With questions contact our clinic at [phone] Total Time Total Time Spent Total Time Spent (In Minutes): 30 mins Discharge Plan Discharge Items Patient Disposition: Home - Home Health Services Reason For Visit: Osteoarthritis Hip Left Discharge Diagnosis: Left Hip Osteoarthritis Activity: As commented below Lifting: None Bathing: Keep incision dry Bathing Comment: May shower tomorrow Sexual Activity: Wait until after follow-up appointment Exercise/Sports: Wait until after follow-up appointment Driving/Machine Use: No driving until cleared by supply chain specialist Weightbearing: Left weightbearing Weightbearing Comment: as tolerated with walker assistance Non-emergency contact: Surgeon Call non-emergency contact if: you have any medication questions, your pain is not controlled, your temperature is above 101.5, your wound has increased drainage and your wound pain has increased Follow-up/Referrals: Paulie Diaz MD [Primary Care Provider] - Diet: Regular Addtl Attending Provider Instructions: Post-operative Instructions Dear Patient and Family/Friends, Before you are discharged from the hospital, it is important to know what to expect when you get home after surgery. To that end, we have created this sheet of discharge instructions which covers many commonly asked questions. Make sure you go through this sheet in its entirety with your nurse before you are discharged. Please note that we will go over the specifics of your surgery and recovery when you return for your first post-operative visit. Sincerely, Dr. Washington Medications 1. Oxycodone 5 mg: take 1-2 tabs every 4-6 hours as needed for pain. A prescription will be sent to your pharmacy for this medication. 2. Diclofenac Sodium 75 mg: take 1 tab twice daily for the first 30 days post operatively for pain and inflammation relief. A prescription will be sent to your pharmacy with 1 refill. 3. Aspirin 81 mg: take 1 tab twice daily for blood clot prevention. Please purchase. 4. Extra Strength Tylenol 500 mg: take 2 tabs every 6-8 hrs as needd for additional pain relief. Pain Expect to be in a fair amount of pain after surgery. Remember, our goal is not to eliminate your pain, but to make it tolerable. It is a good idea to stay ahead of your pain by taking the medications you were prescribed once you get home. Typically, the pain starts improving 3-7 days after surgery. You should start weaning off the narcotic pain medication (oxycodone, hydrocodone, hydromorphone, morphine) as soon as your pain improves. Please call our office if your pain is not adequately controlled. Ice Ice your operative site at least 5 times a day for 15-30 minutes at a time. Make sure you have a thin cloth between the ice or cooling unit and your skin to prevent kaur bite. This is especially important if you received a nerve block. Continue icing your operative site for the first 5-7 days after surgery, then as needed. Diet/Nausea/Vomiting Start by drinking clear liquids and eating crackers. If you can tolerate this, then you may resume your normal diet. If you feel nauseated or vomit, take Zofran/ondansetron (if prescribed). Please call our office if you have in tractable nausea or vomiting, or, if after hours, you may go to the Emergency Room for help. Constipation Constipation is a common side effect of narcotic pain medication. If you have not had a bowel movement within 2 days after surgery, we recommend purchasing an over the counter laxative such as Milk of Magnesia, Dulcolax, or Miralax from a local pharmacy, and taking it as instructed. Call our clinic if any questions. Nerve block The anesthesia team sometimes places a nerve block to help with post-operative pain control. This results in significant numbness and inability to move the extremity. The nerve block usually wears off in 8-12 hours, but sometimes can last up to 24 hours. Please call our office if you are still unable to move your extremity after 24 hours, unless you received a pain pump to take home. Nerve blocks typically wear off quickly, so start taking pain medication as soon as you start feeling soreness near your surgical site. Weight bearing and Range of Motion. Do not bear any weight through your operative extremity immediately after surgery. If you had upper extremity surgery, do not lift anything with that arm. If you are in a knee brace, keep it locked in place until your follow-up. We will discuss your weight bearing, range of motion, and lifting restrictions in detail at your first post-operative appointment. Continuous Passive Motion (CPM) Machine If you were prescribed a CPM machine, it will start after your first post- operative appointment, at which time we will give you instructions on the range of motion settings and duration of treatment Physical therapy You will be given a prescription for physical therapy or occupational therapy at your first post-operative appointment. Typically, patients start therapy within 1 week of surgery Wound care and showering We will inspect your wound at your first post-operative visit, and may do a dressing change at that time. Most patients will be in a water-proof dressing that is removed 14 days after surgery. It is normal to see some dried blood on the dressing. Do not remove your dressing, paper strips or sutures yourself unless you are given permission. Showering is allowed the day after surgery. Do not scrub or remove any dressings. The wound should not be submerged underwater (i.e. in a bathtub or pool) until 4 weeks after surgery LEANDRO stockings If you were given white stockings, these are to be worn at all times except to shower (on both legs) for the first 2 weeks after surgery. Driving You may not drive while taking narcotic pain medication or while in a cast, splint, sling or brace. You, the patient, need to make the final determination about when you are safe to drive, however, the earliest you may consider driving after surgery is below: Hand/Wrist/Elbow Surgery: 3 days Shoulder Surgery: 2 weeks Hip,/Knee/Ankle Surgery: 4 weeks Fracture repair: 6 weeks Return to Work Your return to work depends on what surgery was done and what type of work you do. Please bring any paperwork your employer needs completed to your first post-operative visit. Also, bring a description of your job duties, as this helps us to understand what risks you may face at work. Travel Avoid long distance travel (greater than 1 hour) in airplanes and cars for the first 6 weeks after surgery. If you must travel, you need to have a Doppler ultrasound done before you travel to rule out a blood clot in your legs. Follow-up You should have a follow-up appointment already scheduled 1-2 days after surgery. If not, please contact our office to make this appointment before you leave the hospital. When to call the office It is normal to have swelling and bruising in the limb that was operated on. This will improve with time. It is also normal to have fevers for the first 2 days after surgery. Reasons you should call your doctor include: Uncontrolled pain; Nausea, vomiting, or constipation that does not improve with medication; Fevers over 101.5, chills, sweats; Drainage or bleeding from the wound; Foul odor; Spreading areas of redness; Any other concerns Pending Studies at Discharge: No Stand-Alone Forms: [facility] Medications and DC Order Prescriptions: New oxycodone 5 mg tablet 5 mg PO Q4H Qty: 28 RF: 0 diclofenac sodium 50 mg tablet,delayed release (DR/EC) 50 mg PO BID 30 Days Qty: 60 RF: 1 Continued multivitamin Tablet 1 tab PO QDL RF: 0 calcium carbonate-vitamin D3 600 mg(1,500mg) -200 unit Tablet 1 tab PO QDL RF: 0 levothyroxine 50 mcg Tablet 50 mcg PO QAM RF: 0 cranberry 500 mg Capsule 500 mg PO QDL RF: 0 cholecalciferol (vitamin D3) [Vitamin D3] 25 mcg (1,000 unit) Tablet 25 mcg PO QDL RF: 0 omega-3 fatty acids 1,000 mg Capsule 1,000 mg PO QDL RF: 0 vitamin E 400 unit Capsule 400 unit PO QDL RF: 0 acetaminophen 650 mg Tablet Extended Release 650 mg PO TID RF: 0 Changed aspirin 81 mg Tablet,Delayed Release (Dr/Ec) 81 mg PO BID Qty: 0 RF: 0 Discharge Orders: Discharge Order (Routine); Ordered 02/26/22 Ordered By: Trevor Garcia Admission Data Admit Date/Time: 02/25/22 13:12 Attending Provider: Camilo Washington Admit Provider: Camilo Washington Primary Care Provider: Paulie Diaz Other Providers: [facility] Other Interventions: Discharge Summary Assessment (RN) Last Done: 02/26/22 10:10
[2022-02-26] MEDS ORDERED: CHOLECALCIFEROL 1,000 UNITS 25 MCG TAB PO SCH (11:30)
[2022-02-26] MEDS ORDERED: TOCOPHERYL, DL-ALPHA 400 UNITS 180 MG CAP PO SCH (11:30)
[2022-02-26] MEDS ORDERED: OMEGA-3 (PURIFIED FISH OIL) 1 GM CAP PO SCH (11:30)
[2022-02-26] MEDS ORDERED: CALCIUM 600MG + VIT D 400 IU TAB PO SCH (11:30)
[2022-02-26] MEDS ORDERED: NON-FORMULARY MEDICATION (Multivitamin Tablet) PO SCH (11:30)
[2022-02-26] MEDS ORDERED: NON-FORMULARY MEDICATION (Cranberry 500 mg Capsule) PO SCH (11:30)
== END 2022-02-26 13:54 | disposition home health service (06) ==
LOC: PACUINP 07:49 → ASU 07:49 → 3E 15:49